=== PATIENT | female | born 1960 | race Caucasian/White ===

== ENCOUNTER 2017-06-08 03:45 | Inpatient (IN) | payer BC ==
[2017-06-08] MEDS ORDERED: ONDANSETRON 4 MG/2 ML VIAL IVP STA (04:10)
[2017-06-08] MEDS ORDERED: HYDROmorphone 1 MG/ML 1 ML SYRINGE IVP STA ×2 (04:10→05:17)
[2017-06-08] MEDS ORDERED: SODIUM CHLORIDE 0.9% 500 ML IV STA (04:11)
--- NOTE | 2017-06-08 04:16 | ED ---
General Adult HPI - General Chief complaint: Chest Pain Stated complaint: CHEST PAIN Time Seen by Provider: 06/08/17 03:50 Source: patient, RN notes reviewed Mode of arrival: wheelchair Limitations: no limitations - History of Present Illness Initial comments: This a 57-year-old female presents emergency Department complaining of waking up in the middle the night about 4 hours ago with chest pain. Patient states it radiated right to her back. And she became nauseated but has yet to vomit. Patient states the chest pain but she points to her epigastric region. Patient states prior to going to bed she had no symptoms. Patient denies any fever chills or cough. Patient denies any vomiting or diarrhea. Patient denies any dysuria hematuria urinary frequency. Patient denies any palpitations or shortness of breath per patient denies headache patient denies numbness weakness. Patient denies lightheadedness dizziness or near syncopal episode. - Related Data Allergies Allergy/AdvReac Type Severity Reaction Status Date / Time amoxicillin [From Trimox] Allergy Swelling Verified 06/08/17 03:53 erythromycin base Allergy Swelling Verified 06/08/17 03:53 morphine Allergy Swelling Verified 06/08/17 03:53 Sulfa (Sulfonamide Allergy Rash/Hives Verified 06/08/17 03:53 Antibiotics) Review of Systems ROS Statement: Those systems with pertinent positive or pertinent negative responses have been documented in the HPI. ROS Other: All systems not noted in ROS Statement are negative. Past Medical History Past Medical History: No Reported History History of Any Multi-Drug Resistant Organisms: None Reported Past Surgical History: Hysterectomy Additional Past Surgical History / Comment(s): bowel obstruction. Past Psychological History: No Psychological Hx Reported Smoking Status: Former smoker Past Alcohol Use History: Occasional Past Drug Use History: None Reported General Exam - General Exam Comments Initial Comments: GENERAL: Patient is well-developed and well-nourished. Patient is nontoxic and well- hydrated and is in mild distress. ENT: Neck is soft and supple. No significant lymphadenopathy is noted. Oropharynx is clear. Moist mucous membranes. Neck has full range of motion without eliciting any pain. EYES: The sclera were anicteric and conjunctiva were pink and moist. Extraocular movements were intact and pupils were equal round and reactive to light. Eyelids were unremarkable. PULMONARY: Unlabored respirations. Good breath sounds bilaterally. No audible rales rhonchi or wheezing was noted. CARDIOVASCULAR: There is a regular rate and rhythm without any murmurs gallops or rubs. ABDOMEN: Patient is a tender epigastric region SKIN: Skin is clear with no lesions or rashes and otherwise unremarkable. NEUROLOGIC: Patient is alert and oriented x3. Cranial nerves II through XII are grossly intact. Motor and sensory are also intact. Normal speech, volume and content. Symmetrical smile. MUSCULOSKELETAL: Normal extremities with adequate strength and full range of motion. No lower extremity swelling or edema. No calf tenderness. LYMPHATICS: No significant lymphadenopathy is noted PSYCHIATRIC: Normal psychiatric evaluation. Normal interpersonal interactions appears functionally intact in deals appropriately with others. No signs of depression. Limitations: no limitations Course Vital Signs 06/08/17 06/08/17 06/08/17 03:49 04:08 04:46 Temperature 98.4 F Pulse Rate 105 H 101 H 80 Respiratory 16 18 18 Rate Blood Pressure 209/107 180/83 166/78 O2 Sat by Pulse 99 99 100 Oximetry 06/08/17 05:45 Temperature 97.6 F Pulse Rate 84 Respiratory 18 Rate Blood Pressure 170/77 O2 Sat by Pulse 98 Oximetry Medical Decision Making - Medical Decision Making EKG shows sinus bradycardia at 107 bpm IA interval is 146 QRS is 72 QT interval 350 QTC is 467. Patient's EKG shows no ST segment elevation or depression or T- wave abnormality she noted. Chest x-ray shows possible infiltrate in the left upper lobe and possible lymphadenopathy in the left hilum. I did a computed tomography scan and computed tomography scan showed a probable pulmonary embolism and 2 spiculated masses. I spoke with Dr. Sanchez's nurse practitioner admitted the patient consult pulmonology. - Lab Data Result diagrams: 06/08/17 03:55 06/08/17 03:55 Lab Results 06/08/17 06/08/17 06/08/17 Range/Units 03:55 03:55 03:55 WBC 8.1 (3.8-10.6) k/uL RBC 5.10 (3.80-5.40) m/uL Hgb 14.7 (11.4-16.0) gm/dL Hct 44.7 (34.0-46.0) % MCV 87.7 (80.0-100.0) fL MCH 28.7 (25.0-35.0) pg MCHC 32.8 (31.0-37.0) g/dL RDW 12.8 (11.5-15.5) % Plt Count 305 (150-450) k/uL Neutrophils % 70 % Lymphocytes % 22 % Monocytes % 5 % Eosinophils % 1 % Basophils % 1 % Neutrophils # 5.6 (1.3-7.7) k/uL Lymphocytes # 1.8 (1.0-4.8) k/uL Monocytes # 0.4 (0-1.0) k/uL Eosinophils # 0.1 (0-0.7) k/uL Basophils # 0.1 (0-0.2) k/uL PT (9.0-12.0) sec INR (<1.2) APTT (22.0-30.0) sec Sodium 141 (137-145) mmol/L Potassium 4.3 (3.5-5.1) mmol/L Chloride 103 (98-107) mmol/L Carbon Dioxide 26 (22-30) mmol/L Anion Gap 12 mmol/L BUN 16 (7-17) mg/dL Creatinine 0.70 (0.52-1.04) mg/dL Est GFR (MDRD) Af Amer >60 (>60 ml/min/1.73 sqM) Est GFR (MDRD) Non-Af >60 (>60 ml/min/1.73 sqM) Glucose 134 H (74-99) mg/dL Calcium 9.5 (8.4-10.2) mg/dL Magnesium 1.8 (1.6-2.3) mg/dL Total Bilirubin 0.3 (0.2-1.3) mg/dL AST 19 (14-36) U/L ALT 37 (9-52) U/L Alkaline Phosphatase 119 (38-126) U/L Total Creatine Kinase 73 (30-135) U/L CK-MB (CK-2) 0.9 (0.0-2.4) ng/mL CK-MB (CK-2) Rel Index 1.2 Troponin I 0.024 (0.000-0.034) ng/mL Total Protein 7.7 (6.3-8.2) g/dL Albumin 4.5 (3.5-5.0) g/dL Amylase 67 (30-110) U/L Lipase 154 (23-300) U/L 11/07/17 Range/Units 03:55 WBC (3.8-10.6) k/uL RBC (3.80-5.40) m/uL Hgb (11.4-16.0) gm/dL Hct (34.0-46.0) % MCV (80.0-100.0) fL MCH (25.0-35.0) pg MCHC (31.0-37.0) g/dL RDW (11.5-15.5) % Plt Count (150-450) k/uL Neutrophils % % Lymphocytes % % Monocytes % % Eosinophils % % Basophils % % Neutrophils # (1.3-7.7) k/uL Lymphocytes # (1.0-4.8) k/uL Monocytes # (0-1.0) k/uL Eosinophils # (0-0.7) k/uL Basophils # (0-0.2) k/uL PT 9.5 (9.0-12.0) sec INR 0.9 (<1.2) APTT 23.8 (22.0-30.0) sec Sodium (137-145) mmol/L Potassium (3.5-5.1) mmol/L Chloride (98-107) mmol/L Carbon Dioxide (22-30) mmol/L Anion Gap mmol/L BUN (7-17) mg/dL Creatinine (0.52-1.04) mg/dL Est GFR (MDRD) Af Amer (>60 ml/min/1.73 sqM) Est GFR (MDRD) Non-Af (>60 ml/min/1.73 sqM) Glucose (74-99) mg/dL Calcium (8.4-10.2) mg/dL Magnesium (1.6-2.3) mg/dL Total Bilirubin (0.2-1.3) mg/dL AST (14-36) U/L ALT (9-52) U/L Alkaline Phosphatase (38-126) U/L Total Creatine Kinase (30-135) U/L CK-MB (CK-2) (0.0-2.4) ng/mL CK-MB (CK-2) Rel Index Troponin I (0.000-0.034) ng/mL Total Protein (6.3-8.2) g/dL Albumin (3.5-5.0) g/dL Amylase (30-110) U/L Lipase (23-300) U/L Disposition Clinical Impression: Pulmonary embolism, Lung mass Disposition: ADMITTED IP TO THIS HOSP Referrals: None,Stated [Primary Care Provider] - 1-2 days Time of Disposition: 06:17
[2017-06-08 04:27] LABS: Basophils # (A) 0.1 k/uL (0-0.2); Basophils % (A) 1 %; CH 28.6; CHCM 32.8; Eosinophils # (A) 0.1 k/uL (0-0.7); Eosinophils % (A) 1 %; HCT 44.7 % (34.0-46.0); HDW 2.31; HGB 14.7 gm/dL (11.4-16.0); Luc # (Auto) 0.13; Luc % (Auto) 2; Lymphocytes # (A) 1.8 k/uL (1.0-4.8); Lymphocytes % (A) 22 %; MCH 28.7 pg (25.0-35.0); MCHC 32.8 g/dL (31.0-37.0); MCV 87.7 fL (80.0-100.0); Monocytes # (A) 0.4 k/uL (0-1.0); Monocytes % (A) 5 %; Neutrophils # (A) 5.6 k/uL (1.3-7.7); Neutrophils % (A) 70 %; RDW 12.8 % (11.5-15.5); WBC 8.1 k/uL (3.8-10.6); WBC (Perox) 7.33
[2017-06-08 04:36] LABS: ALT 37 U/L (9-52); AST 19 U/L (14-36); Alkaline Phosphatase 119 U/L (38-126); Amylase 67 U/L (30-110); Anion Gap 12 mmol/L; Blood Urea Nitrogen 16 mg/dL (7-17); Calcium 9.5 mg/dL (8.4-10.2); Carbon Dioxide 26 mmol/L (22-30); Chloride 103 mmol/L (98-107); Glucose 134 mg/dL (74-99); Magnesium 1.8 mg/dL (1.6-2.3); Non-African American GFR(MDRD) >60 (>60 ml/min/1.73 sqM); Potassium 4.3 mmol/L (3.5-5.1); Sodium 141 mmol/L (137-145); Total Bilirubin 0.3 mg/dL (0.2-1.3); Total Protein 7.7 g/dL (6.3-8.2)
--- NOTE | 2017-06-08 04:56 | XR ---
EXAM: XR Chest, 2 Views CLINICAL HISTORY: Reason: Chest Pain TECHNIQUE: Frontal and lateral views of the chest. COMPARISON: No relevant prior studies available. FINDINGS: Lungs: Focal ovoid opacity in the left upper lung which may reflect developing infiltrate. Follow-up to clearing recommended to exclude underlying lesion. Left hilar fullness which may reflect central infiltrate. Lymphadenopathy can give this appearance. Pleural space: No pleural effusion. Mild biapical pleural thickening. No pneumothorax. Heart: Unremarkable. No cardiomegaly. Mediastinum: Unremarkable. Bones/joints: Unremarkable. Tubes, lines and devices: Overlying tubing and chest leads obscure portion of the chest. IMPRESSION: Focal infiltrate in the left upper lobe. Follow-up to clearing recommended to exclude underlying abnormality Left perihilar infiltrate versus left hilar lymphadenopathy. Consider further evaluation with chest CT for better visualization as indicated. No effusion [employer] 06/08/17 05:08 Verify Receipt Verified receipt with WAI Castro for Dr. Crandall on 06/08 05:06 (-05:00)
[2017-06-08 04:57] LABS: INR 0.9 (<1.2); Partial Thromboplastin Time 23.8 sec (22.0-30.0); Prothrombin Time 9.5 sec (9.0-12.0)
[2017-06-08] MEDS ORDERED: RX INFO: IV CONTRAST WAS GIVEN 1 EACH MISC MISCELLANE PRN ×2 (05:11→11:46)
[2017-06-08 05:18] LABS: Creatine Kinase MB 0.9 ng/mL (0.0-2.4); Troponin I 0.024 ng/mL (0.000-0.034)
--- NOTE | 2017-06-08 06:07 | CT ---
EXAM: CT Angiography Chest With Intravenous Contrast CLINICAL HISTORY: Reason: Pain TECHNIQUE: Axial computed tomographic angiography images of the chest with intravenous contrast using pulmonary embolism protocol. CTDI is 31.8 mGy and DLP is 172.1 mGy-cm. This CT exam was performed using one or more of the following dose reduction techniques: automated exposure control, adjustment of the mA and/or kV according to patient size, and/or use of iterative reconstruction technique. MIP reconstructed images were created and reviewed. COMPARISON: No prior study FINDINGS: Limitations: Suboptimal timing of the contrast bolus somewhat limits evaluation. Pulmonary arteries: Subtle filling defect in the descending segmental branch of the right pulmonary artery (image 80 series 4). Additional possible faint filling defect in the descending segmental branch of the left pulmonary artery. Overall decrease in opacification in the ascending segmental branch of the left pulmonary artery which is concerning for occluding thrombus. Aorta: Calcified atherosclerotic tortuous thoracic aorta. No thoracic aortic aneurysm. Lungs: Tiny nodule in the right upper lobe (image 35). Additional faint nodule in the right upper lobe (image 66). Dependent atelectasis in both lower lobes. Pleural space: No pleural effusion. Mild biapical pleural thickening. Spiculated mass in the left upper lobe measuring 2 cm which extends to the anterior apex and associated with pleural thickening. Additional central left suprahilar masslike finding measuring approximately 1.8 cm. Spiculated lesion in the superior segment of the left lower lobe measuring approximately 2.7 x 2.2 cm. No pneumothorax. Heart: No pericardial effusion. Mediastinum: Small hiatal hernia. Bones/joints: No acute fracture. No dislocation. Soft tissues: Small nodularity in the inner lower left breast, nonspecific. This is seen on image 80 series 4 and image 13 series 10. Recommend correlation with exam and mammogram. Lymph nodes: Small subcentimeter mediastinal lymph nodes, nonspecific. Left hilar lymphadenopathy measuring approximately 2 x 1.3 cm. Gallbladder and bile ducts: Cholelithiasis. Stomach and bowel: Diverticulosis in the visualized large bowel. Other findings: No evidence for dissection. IMPRESSION: 1. Suspicious for pulmonary embolism. Suboptimal timing of the contrast bolus 2. At least 2 spiculated masses in the left upper lobe and left lower lobe concerning for malignancy/metastases. 3. Additional tiny nodules and ill-defined opacities, nonspecific. 4. Left hilar lymphadenopathy. 5. Additional findings as noted above [employer] 06/08/17 06:21 Verify Receipt Verified receipt with ER clerk Castro, given to Dr. Crandall on 06/08 06:20 (-05:00)
[2017-06-08] MEDS ORDERED: HEPARIN SODIUM,PORCINE 10,000 UNIT/ML 1 ML VIAL IV ONE (06:14)
[2017-06-08] MEDS ORDERED: SODIUM CHLORIDE 0.9% 1,000 ML IV ONE (06:17)
[2017-06-08] MEDS: HEPARIN SODIUM,PORCINE/D5W PMX 25,000 UNIT in DEXTROSE/WATER 1 500ML.BAG IV SCH (06:23)
[2017-06-08] MEDS: HYDROmorphone 1 MG/ML 1 ML SYRINGE IVP PRN (10:02)
--- NOTE | 2017-06-08 11:59 | P.CNPUL ---
History of Present Illness Consult date: 06/08/17 Requesting physician: Cordelia Ramos Reason for consult: dyspnea, abnormal CXR/CT Chief complaint: Midsternal to right sided chest discomfort, back pain, shortness of breath History of present illness: This is a very pleasant 57-year-old female patient who follows with no primary care physician. She is on no home medications. She has a previous history of seasonal ALLERGIES and hyperlipidemia. She does have a past surgical history of total abdominal hysterectomy in 1981 for precancerous cervical changes, bowel surgery for bowel obstruction in 1997, colonoscopy in 2013. She is up-to- date on her mammograms. No history of cancer. She does have a remote smoking history for greater than 10 years but quit approximately 12 years ago. She has no history of emphysema, no bronchial asthma. She's not been seen by a multimedia production assistant in the past. She presented here to the emergency room approximately 3:30 this morning after being awoken from a sound sleep with midsternal chest discomfort that was radiating to her back. She got up and moved around without any significant change. She was short of breath with exertion.. She drove herself to the hospital. The patient is quite active and was actually working out and on a treadmill yesterday. She is not sedentary. No recent surgeries. No recent prolonged travel. No history of cancer or blood clots in the past. EKG revealed sinus tachycardia with no ST or T-wave abnormalities. Troponins were negative. Her chest x-ray revealed a focal infiltrate in the left upper lobe as well as left perihilar infiltrate versus lymphadenopathy. She had no fever, chills or night sweats. No cough or congestion. She is maintaining O2 saturations in the 90s on room air. A CT angiogram did reveal suspicion for pulmonary embolism with subtle filling defects in the descending segmental branch of the right pulmonary artery with additional possible faint filling defect in the descending segmental branch of the left pulmonary artery. Also, there is additional findings of 2 spiculated masses in the left upper lobe and left lower lobe concerning for malignancy/ metastasis. There is additional tiny nodules and ill-defined opacities that are nonspecific. There is left hilar lymphadenopathy. The patient is seen today 06/08/2017 in consultation on the selective care unit. She is currently on a heparin drip. She is awake and alert in no acute distress. She denies any worsening shortness of breath, cough or congestion. No hemoptysis. No recent weight loss. She remains afebrile. No leukocytosis. The chest discomfort remains intermittent. Occasionally sharp pain. More so on the right side. Review of Systems 14 point review of system was conducted. All negative other than as mentioned in the HPI. Past Medical History Past Medical History: No Reported History History of Any Multi-Drug Resistant Organisms: None Reported Past Surgical History: Hysterectomy Additional Past Surgical History / Comment(s): bowel obstruction. Past Anesthesia/Blood Transfusion Reactions: No Reported Reaction Past Psychological History: No Psychological Hx Reported Smoking Status: Former smoker Past Alcohol Use History: Occasional Past Drug Use History: None Reported - Past Family History Mother Family Medical History: Cancer, Coronary Artery Disease (CAD), Diabetes Mellitus Father Family Medical History: No Reported History Medications and Allergies Home Medications Medication Instructions Recorded Confirmed Type No Known Home Medications [No 06/08/17 06/08/17 History Known Home Medications] Allergies Allergy/AdvReac Type Severity Reaction Status Date / Time amoxicillin [From Trimox] Allergy Swelling Verified 06/08/17 08:10 erythromycin base Allergy Swelling Verified 06/08/17 08:10 morphine Allergy Swelling Verified 06/08/17 08:10 Sulfa (Sulfonamide Allergy Rash/Hives Verified 06/08/17 08:10 Antibiotics) Physical Exam Vitals: Vital Signs Temp Pulse Pulse Resp BP BP Pulse Ox 06/08/17 08:03 98.1 F 82 16 132/72 99 06/08/17 06:49 97.0 F L 75 18 169/75 100 06/08/17 06:35 97.9 F 88 18 164/75 100 06/08/17 06:29 98.1 F 82 16 131/72 99 06/08/17 05:45 97.6 F 84 18 170/77 98 06/08/17 04:46 80 18 166/78 100 06/08/17 04:08 101 H 18 180/83 99 06/08/17 03:49 98.4 F 105 H 16 209/107 99 Intake and Output 06/07/17 06/08/17 06/08/17 22:59 06:59 14:59 Intake Total 240 Balance 240 Intake: Oral 240 Other: Weight 63.957 kg GENERAL EXAM: Alert, active, comfortable in no apparent distress. HEAD: Normocephalic. EYES: Normal reaction of pupils, equal size. NOSE: Clear with pink turbinates. THROAT: No erythema or exudates. NECK: No masses, no JVD. CHEST: No chest wall deformity. LUNGS: Equal air entry with no crackles, wheeze, rhonchi or dullness. CVS: S1 and S2 normal with no audible murmur, regular rhythm. ABDOMEN: No hepatosplenomegaly, normal bowel sounds, no guarding or rigidity. SPINE: No scoliosis or deformity SKIN: No rashes CENTRAL NERVOUS SYSTEM: No focal deficits, tone is normal in all 4 extremities. EXTREMITIES: There is no peripheral edema. No clubbing, no cyanosis. Peripheral pulses are intact. Results - Laboratory Findings CBC and BMP: 06/08/17 03:55 06/08/17 03:55 PT/INR, D-dimer PT 9.5 sec (9.0-12.0) 06/08/17 03:55 INR 0.9 (<1.2) 06/08/17 03:55 Abnormal lab findings: Abnormal Labs 06/08/17 03:55 Glucose 134 H - Diagnostic Findings Chest x-ray: image reviewed CT scan - chest: image reviewed Assessment and Plan Assessment: Impression: #1 Acute chest pain and shortness of breath secondary to bilateral pulmonary emboli. Currently on a heparin drip. #2 Pulmonary nodules, there are tiny nodules in the right upper lobe, there is a spiculated mass in the left upper lobe measuring 2 cm which extends to the anterior apex and associated pleural thickening. There is an additional central left suprahilar masslike finding measuring approximate 1.8 cm. There is also a spiculated lesion in the superior segment of the left lower lobe measuring approximately 2.7 x 2.2 cm. #3 History of chronic tobacco dependence, quit approximately 12 years ago. #4 Small nodularity in the inner lower left breast, nonspecific. Most recent mammogram on 03/12/2016 revealed no discrete abnormalities. #5 History of precancerous cervical lesions status post hysterectomy in 1981. #6 History of hyperlipidemia. Plan: The patient was seen and evaluated by Dr. Sun. Her chest x-ray and CAT scan was reviewed. He did have a lengthy discussion with the patient in regards to the suspicious lung masses. The plan is to continue treatment for the pulmonary emboli including 3 months of anticoagulation. After that we could safely stop the anticoagulants for a couple of days and perform either a bronchoscopy with biopsy utilizing navigational bronchoscopy versus percutaneous biopsy by interventional radiology of the peripheral lower lobe nodule. Prior to that she would have an outpatient PET scan to determine which area may provide better yield and diagnosis. In the interim, we will obtain a computed tomography scan of the abdomen and Dopplers of the lower extremities. The patient verbalizes understanding and is agreeable to the plan. We will continue to follow and make further recommendations based on her clinical status and the test results. I, the cosigning physician, have performed a history and physical examination on the patient. Chest x-ray and CAT scan of the chest were reviewed with the patient. Lung sounds are clear. Maintaining good O2 saturations in the 90s on room air. I have discussed the assessment and plan of care with my nurse practitioner, Ericka Fuller. I attest the above documented note as dictated by her. Time with Patient: Greater than 30
--- NOTE | 2017-06-08 13:18 | US ---
EXAMINATION TYPE: US venous doppler duplex LE BI DATE OF EXAM: 06/08/2017 12:57 PM COMPARISON: NONE CLINICAL HISTORY: PE. SIDE PERFORMED: Bilateral TECHNIQUE: The lower extremity deep venous system is examined utilizing real time linear array sonog jeff with graded compression, doppler sonography and color-flow sonography. VESSELS IMAGED: External Iliac Vein (EIV) Common Femoral Vein Deep Femoral Vein Greater Saphenous Vein * Femoral Vein Popliteal Vein Small Saphenous Vein * Proximal Calf Veins (* superficial vessels) Right Leg: Negative for DVT Left Leg: Negative for DVT IMPRESSION: 1. Study is negative for deep venous thrombosis by ultrasound criteria.
[2017-06-08] MEDS: ALPRAZolam 0.25 MG TAB PO PRN (21:31)
[2017-06-08] MEDS: TEMAZEPAM 15 MG CAP PO PRN (21:31)
--- NOTE | 2017-06-08 22:54 | P.HPIM ---
History of Present Illness H&P Date: 06/08/17 Chief Complaint: Chest pain Patient is a 57-year-old female without significant respiratory history except remote smoking history quit several years ago came to ER with complaints of chest pain. Patient suddenly felt chest pain at about 4:30 AM which woke her from sleep. Chest was radiating to back and to the epigastric region. Sharp pain associated with short of breath. No aggravating or relieving factors. Otherwise patient is very active with daily exercise routine. Patient otherwise denied any recent surgeries or trauma. No history of blood clots previously. Patient is up-to-date with her colonoscopy last in 2013 and also mammograms. Patient does have history of total abdominal hysterectomy in 1981 for precancerous cervical changes. Chest x-ray showed no infiltrate. Showed left perihilar infiltrate versus libido but he Troponin negative EKG showed sinus tachycardia. CT angiogram of the chest showed suspicious for pulmonary embolism descending segmental branch of right pulmonary artery. It was also found to have 2 spiculated masses in the left upper lobe and lower lobe concerning for malignancy. Review of Systems Constitutional: Patient denies any fever or chills . No generalized weakness or weight loss. Abdomen: Patient denied nausea vomiting and diarrhea and abdominal pain. Cardiovascular: Patient denies any chest pain or short of breath no palpitations. Respiratory: No cough or sputum production. Patient does have chest pain.. No shortness of breath Neurologic: Patient denied any numbness or tingling headache. Musculoskeletal: Patient denies any complaints of joint swelling or deformity. Skin: Negative Psychiatric: Negative Endocrine: No heat or cold intolerance. No recent weight gain. Genitourinary: No dysuria or hematuria. All other 14 point ROS negative except the above Past Medical History Past Medical History: No Reported History History of Any Multi-Drug Resistant Organisms: None Reported Past Surgical History: Hysterectomy Additional Past Surgical History / Comment(s): bowel obstruction. Past Psychological History: No Psychological Hx Reported Smoking Status: Former smoker Past Alcohol Use History: Occasional Past Drug Use History: None Reported - Past Family History Mother Family Medical History: Cancer, Coronary Artery Disease (CAD), Diabetes Mellitus Father Family Medical History: No Reported History Medications and Allergies Home Medications Medication Instructions Recorded Confirmed Type No Known Home Medications [No 06/08/17 06/08/17 History Known Home Medications] Allergies Allergy/AdvReac Type Severity Reaction Status Date / Time amoxicillin [From Trimox] Allergy Swelling Verified 06/08/17 08:10 erythromycin base Allergy Swelling Verified 06/08/17 08:10 morphine Allergy Swelling Verified 06/08/17 08:10 Sulfa (Sulfonamide Allergy Rash/Hives Verified 06/08/17 08:10 Antibiotics) Physical Exam Vitals: Vital Signs Temp Pulse Pulse Resp BP BP Pulse Ox 06/08/17 08:03 98.1 F 82 16 132/72 99 06/08/17 06:49 97.0 F L 75 18 169/75 100 06/08/17 06:35 97.9 F 88 18 164/75 100 06/08/17 05:45 97.6 F 84 18 170/77 98 06/08/17 04:46 80 18 166/78 100 06/08/17 04:08 101 H 18 180/83 99 06/08/17 03:49 98.4 F 105 H 16 209/107 99 Intake and Output 06/07/17 06/08/17 06/08/17 22:59 06:59 14:59 Intake Total 240 Balance 240 Intake: Oral 240 Other: Weight 63.957 kg PHYSICAL EXAMINATION: Patient is lying in the bed comfortably, no acute distress, awake alert and oriented.. HEENT: Normocephalic. Neck is supple. Pupils reactive. Nostrils clear. Oral cavity is moist. Ears reveal no drainage. Neck reveals no JVD, carotid bruits, or thyromegaly. CHEST EXAMINATION: Trachea is central. Symmetrical expansion. Lung salmon clear to auscultation and percussion. CARDIAC: Normal S1, S2 with no gallops. No murmurs ABDOMEN: Soft. Bowel sounds normal. No organomegaly. No abdominal bruits. Extremities: reveal no edema. No clubbing or cyanosis Neurologically awake, alert, oriented x3 with well-coordinated movements. No focal deficits noted Skin: No rash or skin lesions. Psychiatric: Operative. Nonsuicidal Musculoskeletal: No joint swelling or deformity. Normal range of motion. Results CBC & Chem 7: 06/08/17 03:55 06/08/17 03:55 Labs: Abnormal Lab Results - Last 24 Hours (Table) 06/08/17 Range/Units 03:55 Glucose 134 H (74-99) mg/dL Assessment and Plan Assessment: #1 chest pain due to acute bilateral pulmonary emboli #2 spiculated mass in the left upper lobe and lower lobe concerning for malignancy #3 hyperlipidemia next #4 history of abdominal hysterectomy due to precancerous cervical lesions Plan: Patient will be continued on heparin drip at this time. Patient's chest pain is improving now. Patient will be getting CT of abdominal pelvis. Pulmonary is recommending bronchoscopy or percutaneous IR guided biopsy after 3 months of anticoagulation. Patient may need PET scan as outpatient. Will consult oncology as well. Prognosis is guarded. Further recommendations based on the clinical course. I did discuss with the patient in detail and answered all questions. Time with Patient: Greater than 30
[2017-06-09] MEDS: HEPARIN SODIUM,PORCINE/D5W PMX 25,000 UNIT in DEXTROSE/WATER 1 500ML.BAG IV SCH (06:52)
[2017-06-09 09:12] LABS: Anion Gap 6 mmol/L; Blood Urea Nitrogen 8 mg/dL (7-17); Calcium 8.8 mg/dL (8.4-10.2); Carbon Dioxide 27 mmol/L (22-30); Chloride 109 mmol/L (98-107); Glucose 110 mg/dL (74-99); Non-African American GFR(MDRD) >60 (>60 ml/min/1.73 sqM); Potassium 4.1 mmol/L (3.5-5.1); Sodium 142 mmol/L (137-145)
[2017-06-09] MEDS ORDERED: RX INFO: IV CONTRAST WAS GIVEN 1 EACH MISC MISCELLANE PRN (09:17)
[2017-06-09] MEDS: IOHEXOL 350 MG/ML 25 ML BOTTLE (ORAL USE) PO PRN ×2 (09:27→10:38)
--- NOTE | 2017-06-09 11:47 | P.PN ---
Subjective Progress Note Date: 06/09/17 Principal diagnosis: Pulmonary embolism, lung mass This is a very pleasant 57-year-old female patient who follows with no primary care physician. She is on no home medications. She has a previous history of seasonal ALLERGIES and hyperlipidemia. She does have a past surgical history of total abdominal hysterectomy in 1981 for precancerous cervical changes, bowel surgery for bowel obstruction in 1997, colonoscopy in 2013. She is up-to- date on her mammograms. No history of cancer. She does have a remote smoking history for greater than 10 years but quit approximately 12 years ago. She has no history of emphysema, no bronchial asthma. She's not been seen by a pole shaver in the past. She presented here to the emergency room approximately 3:30 this morning after being awoken from a sound sleep with midsternal chest discomfort that was radiating to her back. She got up and moved around without any significant change. She was short of breath with exertion.. She drove herself to the hospital. The patient is quite active and was actually working out and on a treadmill yesterday. She is not sedentary. No recent surgeries. No recent prolonged travel. No history of cancer or blood clots in the past. EKG revealed sinus tachycardia with no ST or T-wave abnormalities. Troponins were negative. Her chest x-ray revealed a focal infiltrate in the left upper lobe as well as left perihilar infiltrate versus lymphadenopathy. She had no fever, chills or night sweats. No cough or congestion. She is maintaining O2 saturations in the 90s on room air. A CT angiogram did reveal suspicion for pulmonary embolism with subtle filling defects in the descending segmental branch of the right pulmonary artery with additional possible faint filling defect in the descending segmental branch of the left pulmonary artery. Also, there is additional findings of 2 spiculated masses in the left upper lobe and left lower lobe concerning for malignancy/ metastasis. There is additional tiny nodules and ill-defined opacities that are nonspecific. There is left hilar lymphadenopathy. The patient is seen today 06/08/2017 in consultation on the selective care unit. She is currently on a heparin drip. She is awake and alert in no acute distress. She denies any worsening shortness of breath, cough or congestion. No hemoptysis. No recent weight loss. She remains afebrile. No leukocytosis. The chest discomfort remains intermittent. Occasionally sharp pain. More so on the right side. The patient is seen again today 06/09/2017 in follow-up on the selective care unit. She is awake and alert in no acute distress. She feels nearly back to her baseline. She denies any shortness of breath, cough or congestion. No hemoptysis. No pleuritic type chest pain. She is maintaining good O2 saturations in the 90s on room air. She is quite anxious regarding the potential cancer diagnosis. She is to undergo a computed tomography scan of the abdomen and pelvis. Oncology saw the patient today as well. They would prefer a biopsy prior to the patient's discharge. Interventional radiology is been consulted for computed tomography scan guided FNA of the left lower lobe peripheral lung mass. She remains on heparin drip for now. Objective - Vital Signs Vital signs: Vital Signs Temp 98.1 F 06/09/17 08:00 Pulse 85 06/09/17 08:00 Resp 18 06/09/17 08:00 BP 132/74 06/09/17 08:00 Pulse Ox 97 06/09/17 08:00 Intake & Output 06/08/17 06/09/17 06/09/17 18:59 06:59 18:59 Intake Total 720 1284 240 Output Total 800 500 Balance -80 784 240 Weight 64.8 kg Intake: IV 784 Heparin Sodium,Porcine/ 184 D5w Pmx 25,000 unit In Dextrose/Water 1 500ml. bag @ 18 UNITS/KG/HR 23. 02 mls/hr IV .[id number] [facility] Rx#:[id number] Sodium Chloride 0.9% 1, 600 000 ml @ 75 mls/hr IV . [id number] Rx#:[id number] Intake, IV Titration 500 Amount Heparin Sodium,Porcine/ 500 D5w Pmx 25,000 unit In Dextrose/Water 1 500ml. bag @ 18 UNITS/KG/HR 23. 02 mls/hr IV .[id number] [facility] Rx#:[id number] Oral 720 240 Output: Urine 800 500 Other: Voiding Method Toilet Toilet # Voids 2 0 - Exam GENERAL EXAM: Alert, active, comfortable in no apparent distress. HEAD: Normocephalic. EYES: Normal reaction of pupils, equal size. NOSE: Clear with pink turbinates. THROAT: No erythema or exudates. NECK: No masses, no JVD. CHEST: No chest wall deformity. LUNGS: Equal air entry with no crackles, wheeze, rhonchi or dullness. CVS: S1 and S2 normal with no audible murmur, regular rhythm. ABDOMEN: No hepatosplenomegaly, normal bowel sounds, no guarding or rigidity. SPINE: No scoliosis or deformity SKIN: No rashes CENTRAL NERVOUS SYSTEM: No focal deficits, tone is normal in all 4 extremities. EXTREMITIES: There is no peripheral edema. No clubbing, no cyanosis. Peripheral pulses are intact. - Labs CBC & Chem 7: 06/08/17 03:55 06/09/17 08:17 Labs: Abnormal Lab Results - Last 24 Hours (Table) 06/08/17 06/09/17 06/09/17 Range/Units 13:12 08: 08:17 APTT 62.1 H 49.6 H (22.0-30.0) sec Chloride 109 H (98-107) mmol/L Glucose 110 H (74-99) mg/dL Assessment and Plan Assessment: Impression: #1 Acute chest pain and shortness of breath secondary to bilateral pulmonary emboli. Currently on a heparin drip. #2 Pulmonary nodules, there are tiny nodules in the right upper lobe, there is a spiculated mass in the left upper lobe measuring 2 cm which extends to the anterior apex and associated pleural thickening. There is an additional central left suprahilar masslike finding measuring approximate 1.8 cm. There is also a spiculated lesion in the superior segment of the left lower lobe measuring approximately 2.7 x 2.2 cm. #3 History of chronic tobacco dependence, quit approximately 12 years ago. #4 Small nodularity in the inner lower left breast, nonspecific. Most recent mammogram on 03/12/2016 revealed no discrete abnormalities. #5 History of precancerous cervical lesions status post hysterectomy in 1981. #6 History of hyperlipidemia. Plan: The patient was seen and evaluated by Dr. Sun. We will await results of the abdominal/pelvis computed tomography scan today. The plan is for the patient to undergo a computed tomography scan guided FNA of the left lower lobe lung mass. The plan is for the procedure to be performed in the a.m. We will discontinue the heparin 4 hours prior to the procedure. We will continue to follow and make further recommendations based on her clinical status and the test results. I, the cosigning physician, have performed a history and physical examination on the patient. Lung sounds are clear. Maintaining good O2 saturations in the 90s on room air. I have discussed the assessment and plan of care with my nurse practitioner, Ericka Fuller. I attest the above documented note as dictated by her.
--- NOTE | 2017-06-09 12:06 | CT ---
EXAMINATION TYPE: CT brain w con DATE OF EXAM: 06/09/2017 COMPARISON: NONE HISTORY: Pulmonary embolism and Lung masses CT DLP: 1047.10 mGycm Automated exposure control for dose reduction was used. CONTRAST: CT scan of the head is performed with IV Contrast, patient injected with 100 ml mL of Omnipaque 300. FINDINGS: There is a lobulated appearance noted to involve the tere on the left without distinct enhancement. U nderlying mass is difficult to exclude. MRI is recommended for further evaluation. The ventricles and sulci are within normal limits in size. The globes are intact and the visualized sinuses are clear. IMPRESSION: Recommend MRI to exclude lesion adjacent to the tere as noted above.
--- NOTE | 2017-06-09 12:12 | CT ---
EXAMINATION TYPE: CT abdomen pelvis w con DATE OF EXAM: 06/09/2017 COMPARISON: NONE HISTORY: Lung masses CT DLP: 609.20 mGycm CONTRAST: CT scan of the abdomen and pelvis is performed with Oral Contrast and with IV Contrast, patient injec valentín with 100 ml mL of Omnipaque 300. FINDINGS: LUNG BASES-: No visible nodule. No infiltrate. LIVER/GB: Multiple gallstones are seen within the gallbladder lumen with wall thickening and enhanc ement. Pericholecystic fluid is identified. I cannot exclude acute cholecystitis. Fatty hepatic infil tration noted. No space occupying hepatic lesion. Biliary tree is of normal caliber. PANCREAS: No inflammation. No distinct mass. SPLEEN: No splenic enlargement. No lesion seen. ADRENALS: No nodule. No thickening. KIDNEYS/BLADDER: No hydronephrosis. No nephrolithiasis. No disctinct renal mass. Urinary bladder g rossly unremarkable. BOWEL: Normal appendix. Normal bowel caliber. No inflammation. Small sliding-type hiatal hernia. GENITAL ORGANS: Hysterectomy changes identified. LYMPH NODES: No greater than 1cm abdominal or pelvic lymph nodes are appreciated. AORTA: No significant abnormality. OSSEOUS STRUCTURES: Degenerative change and grade 1 anterolisthesis L5 on S1. OTHER: No significant additional abnormality is seen. IMPRESSION: 1. Correlate for acute cholecystitis. 2. Hepatic steatosis. 3. Small sliding-type hiatal hernia. A Red message has been communicated to Cordelia Ramos MD via the [employer] system on 06/09/2017 12:10 PM, Message ID [id number].
--- NOTE | 2017-06-09 17:46 | P.CONS ---
History of Present Illness - Reason for Consult Consult date: 06/09/17 spiculated lung masses, lymphadenopathy Requesting physician: Angie Alvarez - Chief Complaint sudden onset chest pain - History of Present Illness Mrs. Tabor is a very pleasant 57-year-old female who experienced chest pain, sudden, woke her up, this was associated with nausea, no vomiting, patient thought she was having a heart attack so she came to the emergency department. Patient had CTA of the chest revealing pulmonary embolism as well as spiculated masses- 1.8 cm mass in RAUL, 2.7 x 2.2 cm mass LLL, 2 x 1.3 cm left hilar lymphadenopathy, bilateral lower extremity Doppler negative for DVT. Patient was started on heparin drip with improvement in presenting c/o, no chest pain, no longer nauseated, she denies difficulty in breathing. Patient states that about 2 months ago she first noted a change in her health, she stated experiencing dysphagia, occasional, denied nausea or vomiting, weight loss, actually appetite was increased, she started experiencing night sweats about one month ago, not every night, but she noted they were different from her sweats that she gets from "hot flashes". Patient denied recent illnesses, voice changes, new or changed cough, abdominal pain, bloating, changes in bowel or bladder habits. She has a remote history of smoking, positive for work exposure to black mold, her maternal grandmother had lung cancer. Patient performance status 0, no comorbid conditions, she is in good health. Review of Systems 14 point ROS as stated in HPI Past Medical History Past Medical History: No Reported History History of Any Multi-Drug Resistant Organisms: None Reported Past Surgical History: Hysterectomy Additional Past Surgical History / Comment(s): bowel obstruction. Past Anesthesia/Blood Transfusion Reactions: No Reported Reaction Past Psychological History: No Psychological Hx Reported Smoking Status: Former smoker Past Alcohol Use History: Occasional Past Drug Use History: None Reported - Past Family History Mother Family Medical History: Cancer, Coronary Artery Disease (CAD), Diabetes Mellitus Father Family Medical History: No Reported History Medications and Allergies Home Medications Medication Instructions Recorded Confirmed Type No Known Home Medications [No 06/08/17 06/08/17 History Known Home Medications] Allergies Allergy/AdvReac Type Severity Reaction Status Date / Time amoxicillin [From Trimox] Allergy Swelling Verified 06/08/17 08:10 erythromycin base Allergy Swelling Verified 06/08/17 08:10 morphine Allergy Swelling Verified 06/08/17 08:10 Sulfa (Sulfonamide Allergy Rash/Hives Verified 06/08/17 08:10 Antibiotics) Physical Exam Vitals: Vital Signs Temp Pulse Resp BP Pulse Ox 06/09/17 04:00 97.1 F L 81 18 137/83 95 06/09/17 00:00 97.0 F L 81 18 126/70 94 L 06/08/17 20:00 97.2 F L 85 18 127/73 91 L 06/08/17 16:29 97.7 F 72 16 143/85 97 06/08/17 12:18 97.7 F 89 16 183/82 99 06/08/17 12:15 82 18 Intake and Output 06/08/17 06/09/17 06/09/17 22:59 06:59 14:59 Intake Total 240 1284 240 Output Total 500 Balance -260 1284 240 Intake: IV 784 Heparin Sodium,Porcine/ 184 D5w Pmx 25,000 unit In Dextrose/Water 1 500ml. bag @ 18 UNITS/KG/HR 23. 02 mls/hr IV .[id number] [facility] Rx#:[id number] Sodium Chloride 0.9% 1, 600 000 ml @ 75 mls/hr IV . [id number] [facility] Rx#:[id number] Intake, IV Titration 500 Amount Heparin Sodium,Porcine/ 500 D5w Pmx 25,000 unit In Dextrose/Water 1 500ml. bag @ 18 UNITS/KG/HR 23. 02 mls/hr IV .[id number] [facility] Rx#:[id number] Oral 240 240 Output: Urine 500 Other: Voiding Method Toilet Toilet # Voids 2 0 Weight 64.8 kg - Constitutional General appearance: average body habitus, cooperative, no acute distress - EENT Eyes: anicteric sclerae, EOMI, normal appearance ENT: normal oropharynx - Neck left supraclavicular fullness, no palpable masses or lymphadenopathy palpated - Respiratory Respiratory: bilateral: CTA - Cardiovascular Rhythm: regular Heart sounds: normal: S1, S2 Abnormal Heart Sounds: no systolic murmur, no diastolic murmur, no rub, no S3 Gallop, no S4 Gallop, no click, no other leg Peripheral Edema: bilateral: None - Gastrointestinal General gastrointestinal: no absent bowel sounds, no decreased bowel sounds, no distended, no hepatomegaly, no hyperactive bowel sounds, normal bowel sounds, no organomegaly, no rigid, no scaphoid, soft, no splenomegaly, no tenderness, no umbilical hernia, no ventral hernia - Integumentary Integumentary: normal - Neurologic Neurologic: CNII-XII intact - Musculoskeletal Musculoskeletal: strength equal bilaterally - Psychiatric Psychiatric: A&O x's 3, appropriate affect, intact judgment & insight Results CBC & Chem 7: 06/08/17 03:55 06/09/17 08:17 Labs: Abnormal Lab Results - Last 24 Hours (Table) 06/08/17 06/09/17 Range/Units 13:12 08:17 APTT 62.1 H (22.0-30.0) sec Chloride 109 H (98-107) mmol/L Glucose 110 H (74-99) mg/dL Comments: EKG reviewed Chest x-ray: report reviewed CT scan - chest: report reviewed Venous US: report reviewed Assessment and Plan (1) Lung mass Narrative/Plan: Pulmonary notes reviewed, brief discussion with DNP. Plan is for CT-guided FNA biopsy unless staging CT of abdomen and pelvis finds a better target for biopsy. Agree with biopsy sooner than later as patient is on a heparin drip, which is slightly easier to manage with biopsies, it does shorten the duration of time which the patient would be unprotected for her PE. Dr. Jackson did discuss with the patient the suspicion for malignancy based on imaging as well as presentation of unprovoked PE. Agree with workup sooner than later, CT of the abdomen and pelvis has been ordered, CT of the brain will be ordered to complete staging. We will continue to follow patient with you. Current Visit: Yes Status: Acute Priority: High Code(s): R91.8 - OTHER NONSPECIFIC ABNORMAL FINDING OF LUNG FIELD SNOMED Code(s): 727005978 (2) Pulmonary embolism Narrative/Plan: Continue heparin drip for now,further anticoagulation decisions will be made after biopsy Current Visit: Yes Status: Acute Priority: High Code(s): I26.99 - OTHER PULMONARY EMBOLISM WITHOUT ACUTE COR PULMONALE SNOMED Code(s): 63235506
--- NOTE | 2017-06-10 00:23 | P.PN ---
Subjective Progress Note Date: 06/09/17 Principal diagnosis: Lung mass and pulmonary embolism Patient is a 57-year-old female without significant respiratory history except remote smoking history quit several years ago came to ER with complaints of chest pain. Patient suddenly felt chest pain at about 4:30 AM which woke her from sleep. Chest was radiating to back and to the epigastric region. Sharp pain associated with short of breath. No aggravating or relieving factors. Otherwise patient is very active with daily exercise routine. Patient otherwise denied any recent surgeries or trauma. No history of blood clots previously. Patient is up-to-date with her colonoscopy last in 2013 and also mammograms. Patient does have history of total abdominal hysterectomy in 1981 for precancerous cervical changes. Chest x-ray showed no infiltrate. Showed left perihilar infiltrate versus libido but he Troponin negative EKG showed sinus tachycardia. CT angiogram of the chest showed suspicious for pulmonary embolism descending segmental branch of right pulmonary artery. It was also found to have 2 spiculated masses in the left upper lobe and lower lobe concerning for malignancy. 06/09/2017 Patient says that she feels better today. No complaints of chest pain or short of breath. No complaints of abdominal pain also no nausea vomiting. Patient had CT abdomen and pelvis showed acute cholecystitis-like picture and hepatic steatosis. Currently patient denied any pain. CT brain showed suspicious for pontine lesion. Patient is being scheduled for lung biopsy tomorrow. Continued on IV heparin. And will hold prior to procedure. All other review of systems negative except the above Current medications reviewed Objective - Vital Signs Vital signs: Vital Signs Temp 97.1 F L 06/09/17 19:25 Pulse 87 06/09/17 19:25 Resp 16 06/09/17 19:25 BP 130/73 06/09/17 19:25 Pulse Ox 96 06/09/17 19:25 Intake & Output 06/09/17 06/09/17 06/10/17 06:59 18:59 06:59 Intake Total 1284 720 Output Total 500 400 Balance 784 320 Weight 64.8 kg Intake: IV 784 Heparin Sodium,Porcine/ 184 D5w Pmx 25,000 unit In Dextrose/Water 1 500ml. bag @ 18 UNITS/KG/HR 23. 02 mls/hr IV .[id number] [facility] Rx#:[id number] Sodium Chloride 0.9% 1, 600 000 ml @ 75 mls/hr IV . [id number] Rx#:[id number] Intake, IV Titration 500 Amount Heparin Sodium,Porcine/ 500 D5w Pmx 25,000 unit In Dextrose/Water 1 500ml. bag @ 18 UNITS/KG/HR 23. 02 mls/hr IV .[id number] [facility] Rx#:[id number] Oral 720 Output: Urine 500 400 Other: Voiding Method Toilet Toilet # Voids 2 2 # Bowel Movements 0 - Exam PHYSICAL EXAMINATION: Patient is lying in the bed comfortably, no acute distress, awake alert and oriented.. HEENT: Normocephalic. Neck is supple. Pupils reactive. Nostrils clear. Oral cavity is moist. Ears reveal no drainage. Neck reveals no JVD, carotid bruits, or thyromegaly. CHEST EXAMINATION: Trachea is central. Symmetrical expansion. Lung salmon clear to auscultation and percussion. CARDIAC: Normal S1, S2 with no gallops. No murmurs ABDOMEN: Soft. Bowel sounds normal. No organomegaly. No abdominal bruits. Extremities: reveal no edema. No clubbing or cyanosis Neurologically awake, alert, oriented x3 with well-coordinated movements. No focal deficits noted Skin: No rash or skin lesions. Psychiatric: Cooperative. Nonsuicidal Musculoskeletal: No joint swelling or deformity. Normal range of motion. - Labs CBC & Chem 7: 06/08/17 03:55 06/09/17 08:17 Labs: Abnormal Lab Results - Last 24 Hours (Table) 06/09/17 06/09/17 Range/Units : 08:17 APTT 49.6 H (22.0-30.0) sec Chloride 109 H (98-107) mmol/L Glucose 110 H (74-99) mg/dL Assessment and Plan Assessment: #1 chest pain due to acute bilateral pulmonary emboli #2 spiculated mass in the left upper lobe and lower lobe concerning for malignancy #3 hyperlipidemia next #4 history of abdominal hysterectomy due to precancerous cervical lesions Plan: Patient will be continued on heparin drip at this time. Chest pain resolved. Patient had CT abdomen and pelvis and CT head was done. Planning for IR guided lung biopsy tomorrow. Oncology and pulmonary is following. Prognosis is guarded. Further recommendations based on the clinical course. I did discuss with the patient in detail and answered all questions.
[2017-06-10] MEDS: HEPARIN SODIUM,PORCINE/D5W PMX 25,000 UNIT in DEXTROSE/WATER 1 500ML.BAG IV SCH (00:37)
[2017-06-10 07:44] LABS: Mean Platelet Volume 7.2
[2017-06-10 07:48] LABS: INR 0.9 (<1.2); Partial Thromboplastin Time 27.8 sec (22.0-30.0); Prothrombin Time 9.5 sec (9.0-12.0)
[2017-06-10] MEDS: HYDROmorphone 1 MG/ML 1 ML SYRINGE IVP PRN (10:45)
--- NOTE | 2017-06-10 11:39 | XR ---
EXAMINATION TYPE: XR chest 1V portable DATE OF EXAM: 06/10/2017 COMPARISON: Prior chest x-ray 06/08/2017 HISTORY: Status post lung biopsy TECHNIQUE: Single frontal view of the chest is obtained. FINDINGS: Minimal left apical pneumothorax is noted. No other significant interval change. IMPRESSION: Minimal apical pneumothorax. Follow-up recommended.
[2017-06-10] MEDS ORDERED: ONDANSETRON 4 MG/2 ML VIAL IVP PRN (11:49)
--- NOTE | 2017-06-10 13:33 | P.PN ---
Subjective Progress Note Date: 06/10/17 Principal diagnosis: pulmonary embolism, lung mass This is a very pleasant 57-year-old female patient who follows with no primary care physician. She is on no home medications. She has a previous history of seasonal ALLERGIES and hyperlipidemia. She does have a past surgical history of total abdominal hysterectomy in 1981 for precancerous cervical changes, bowel surgery for bowel obstruction in 1997, colonoscopy in 2013. She is up-to- date on her mammograms. No history of cancer. She does have a remote smoking history for greater than 10 years but quit approximately 12 years ago. She has no history of emphysema, no bronchial asthma. 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 She presented here to the emergency room approximately 3:30 this morning after being awoken from a sound sleep with midsternal chest discomfort that was radiating to her back. She got up and moved around without any significant change. She was short of breath with exertion.. She drove herself to the hospital. The patient is quite active and was actually working out and on a treadmill yesterday. She is not sedentary. No recent surgeries. No recent prolonged travel. No history of cancer or blood clots in the past. EKG revealed sinus tachycardia with no ST or T-wave abnormalities. Troponins were negative. Her chest x-ray revealed a focal infiltrate in the left upper lobe as well as left perihilar infiltrate versus lymphadenopathy. She had no fever, chills or night sweats. No cough or congestion. She is maintaining O2 saturations in the 90s on room air. A CT angiogram did reveal suspicion for pulmonary embolism with subtle filling defects in the descending segmental branch of the right pulmonary artery with additional possible faint filling defect in the descending segmental branch of the left pulmonary artery. Also, there is additional findings of 2 spiculated masses in the left upper lobe and left lower lobe concerning for malignancy/ metastasis. There is additional tiny nodules and ill-defined opacities that are nonspecific. There is left hilar lymphadenopathy. The patient is seen today 06/08/2017 in consultation on the selective care unit. She is currently on a heparin drip. She is awake and alert in no acute distress. She denies any worsening shortness of breath, cough or congestion. No hemoptysis. No recent weight loss. She remains afebrile. No leukocytosis. The chest discomfort remains intermittent. Occasionally sharp pain. More so on the right side. The patient is seen again today 06/09/2017 in follow-up on the selective care unit. She is awake and alert in no acute distress. She feels nearly back to her baseline. She denies any shortness of breath, cough or congestion. No hemoptysis. No pleuritic type chest pain. She is maintaining good O2 saturations in the 90s on room air. She is quite anxious regarding the potential cancer diagnosis. She is to undergo a computed tomography scan of the abdomen and pelvis. Oncology saw the patient today as well. They would prefer a biopsy prior to the patient's discharge. Interventional radiology is been consulted for computed tomography scan guided FNA of the left lower lobe peripheral lung mass. She remains on heparin drip for now. On 06/10/2017 patient seen in medical surgical floor, status post left upper lung mass fine-needle aspiration biopsy performed by Dr. Davidson. she is sitting up in bed, in no acute distress, she is on room air with O2 sat 95%. She has been afebrile. chest x-ray from 06/10/2017 after the biopsy shows minimal apical pneumothorax, follow-up chest x-ray will be done at 1400. Lung sounds are clear, no rhonchi, no wheezes, no rales. patient denies any significant discomfort at this time. Objective - Vital Signs Vital signs: Vital Signs Temp 97.6 F 06/10/17 11:48 Pulse 82 06/10/17 12:20 Resp 16 06/10/17 11:48 BP 175/68 06/10/17 12:20 Pulse Ox 93 L 06/10/17 12:20 Intake & Output 06/09/17 06/10/17 06/10/17 18:59 06:59 18:59 Intake Total 720 532.529 Output Total 400 Balance 320 532.529 Weight 68.5 kg Intake: Intake, IV Titration 532.529 Amount Heparin Sodium,Porcine/ 532.529 D5w Pmx 25,000 unit In Dextrose/Water 1 500ml. bag @ 18 UNITS/KG/HR 23. 02 mls/hr IV .[id number] [facility] Rx#:[id number] Oral 720 Output: Urine 400 Other: Voiding Method Toilet Toilet # Voids 2 2 # Bowel Movements 0 0 - Exam GENERAL EXAM: Alert, active, comfortable in no apparent distress. HEAD: Normocephalic. EYES: Normal reaction of pupils, equal size. NOSE: Clear with pink turbinates. THROAT: No erythema or exudates. NECK: No masses, no JVD. CHEST: No chest wall deformity. LUNGS: Equal air entry with no crackles, wheeze, rhonchi or dullness. CVS: S1 and S2 normal with no audible murmur, regular rhythm. ABDOMEN: No hepatosplenomegaly, normal bowel sounds, no guarding or rigidity. SPINE: No scoliosis or deformity SKIN: No rashes CENTRAL NERVOUS SYSTEM: No focal deficits, tone is normal in all 4 extremities. EXTREMITIES: There is no peripheral edema. No clubbing, no cyanosis. Peripheral pulses are intact. - Labs CBC & Chem 7: 06/10/17 07:11 06/09/17 08:17 Assessment and Plan Plan: Impression: #1 Acute chest pain and shortness of breath secondary to bilateral pulmonary emboli. Currently on a heparin drip. #2 Pulmonary nodules, there are tiny nodules in the right upper lobe, there is a spiculated mass in the left upper lobe measuring 2 cm which extends to the anterior apex and associated pleural thickening. There is an additional central left suprahilar masslike finding measuring approximate 1.8 cm. There is also a spiculated lesion in the superior segment of the left lower lobe measuring approximately 2.7 x 2.2 cm, status post left upper lobe fine-needle aspiration biopsy. Small left apical pneumothorax noted on the chest x-ray was taken after the procedure. #3 History of chronic tobacco dependence, quit approximately 12 years ago. #4 Small nodularity in the inner lower left breast, nonspecific. Most recent mammogram on 03/12/2016 revealed no discrete abnormalities. #5 History of precancerous cervical lesions status post hysterectomy in 1981. #6 History of hyperlipidemia. Plan: patient is doing well the left upper lung biopsy, no oxygenation issues, no major respiratory difficulties. Follow-up chest x-ray for small left apical pneumothorax will be done at 1400. T abdomen and pelvis from 06/09/2017 shows possibility of acute cholecystitis, hepatic steatosis and a small sliding type hiatal hernia. she will be resumed on heparin drip once cleared by interventional radiology for her bilateral pulmonary emboli. Further recommendations will follow I performed a history & physical examination of the patient and discussed their management with my nurse practitioner, Elke Clark. patient is status post left lung fine-needle aspiration biopsy, post-procedure chest x-ray positive for small apical pneumothorax, patient is not having any major oxygenation issues or any signs of respiratory distress. I reviewed the nurse practitioner' s note and agree with the documented findings and plan of care. Time with Patient: Less than 30
--- NOTE | 2017-06-10 14:46 | XR ---
EXAMINATION TYPE: XR chest 1V portable DATE OF EXAM: 06/10/2017 COMPARISON: Prior chest x-ray 06/10/2017 HISTORY: Status post lung biopsy, pneumothorax TECHNIQUE: Single frontal view of the chest is obtained. FINDINGS: No significant interval change. IMPRESSION: Only minimal left apical pneumothorax status post lung biopsy.
--- NOTE | 2017-06-10 14:50 | CT ---
EXAMINATION TYPE: CT guided FNA core biopsy left lower lobe lung mass with CT guidance DATE OF EXAM: 06/10/2017 COMPARISON: CT 06/08/2017 HISTORY: Lung mass. CT DLP: 1043 mGycm Automated exposure control for dose reduction was used. Maximal barrier technique was utilized. The skin overlying a suitable path to the lesion was localiz ed using CT and the overlying skin was prepped and draped. Lidocaine used for local anesthesia. A s kin saeed made with a scalpel. Using CT guidance, access was gained to the lesion with a 22-gauge nee dle. 20-gauge guide. Aspirated specimen submitted to cytology. 2 passes were performed in all. Sub sequently core specimen was obtained with an 18-gauge needle through a 17-gauge guide. Following the procedure minimal residual pneumothorax noted. The patient is discharged in stable condition. Hemo stasis achieved. IMPRESSION: SUCCESSFUL CT GUIDED CORE BIOPSY left lower lobe lung mass. PATHOLOGY PENDING. THIS PROCEDURE WAS P ERFORMED BY THE UNDERSIGNED.
--- NOTE | 2017-06-10 16:51 | P.PN ---
Subjective Progress Note Date: 06/10/17 Progress note being dictated for Dr. Alvarez Interval history:Patient is a 57-year-old female without significant respiratory history except remote smoking history quit several years ago came to ER with complaints of chest pain. Patient suddenly felt chest pain at about 4:30 AM which woke her from sleep. Chest was radiating to back and to the epigastric region. Sharp pain associated with short of breath. No aggravating or relieving factors. Otherwise patient is very active with daily exercise routine. Patient otherwise denied any recent surgeries or trauma. No history of blood clots previously. Patient is up-to-date with her colonoscopy last in 2013 and also mammograms. Patient does have history of total abdominal hysterectomy in 1981 for precancerous cervical changes. Chest x-ray showed no infiltrate. Showed left perihilar infiltrate versus libido but he Troponin negative EKG showed sinus tachycardia. CT angiogram of the chest showed suspicious for pulmonary embolism descending segmental branch of right pulmonary artery. It was also found to have 2 spiculated masses in the left upper lobe and lower lobe concerning for malignancy. 06/09/2017 Patient says that she feels better today. No complaints of chest pain or short of breath. No complaints of abdominal pain also no nausea vomiting. Patient had CT abdomen and pelvis showed acute cholecystitis-like picture and hepatic steatosis. Currently patient denied any pain. CT brain showed suspicious for pontine lesion. Patient is being scheduled for lung biopsy tomorrow. Continued on IV heparin. And will hold prior to procedure. All other review of systems negative except the above Current medications reviewed 06/10/[address]-guided FNA of left lower lobe peripheral lung mass per interventional radiology, pathology pending. Postprocedure x-ray reporting minimal left apical pneumothorax. Maintaining O2 sats in the mid 90s on room air. Ambulating, Tolerating exertion well. Afebrile. Objective - Vital Signs Vital signs: Vital Signs Temp 96.7 F L 06/10/17 15:03 Pulse 82 06/10/17 15:03 Resp 16 06/10/17 15:03 BP 130/76 06/10/17 15:03 Pulse Ox 95 06/10/17 15:03 Intake & Output 06/09/17 06/10/17 06/10/17 18:59 06:59 18:59 Intake Total 720 532.529 250 Output Total 400 Balance 320 532.529 250 Weight 68.5 kg Intake: Intake, IV Titration 532.529 Amount Heparin Sodium,Porcine/ 532.529 D5w Pmx 25,000 unit In Dextrose/Water 1 500ml. bag @ 18 UNITS/KG/HR 23. 02 mls/hr IV .[id number] [facility] Rx#:[id number] Oral 720 250 Output: Urine 400 Other: Voiding Method Toilet Toilet # Voids 2 2 4 # Bowel Movements 0 0 - Exam Patient is lying in the bed comfortably, no acute distress, awake alert and oriented.. HEENT: Normocephalic. Neck is supple. Pupils reactive. Nostrils clear. Oral cavity is moist. Ears reveal no drainage. Neck reveals no JVD, carotid bruits, or thyromegaly. CHEST EXAMINATION: Trachea is central. Symmetrical expansion. Lung salmon clear to auscultation and percussion. No crackles, no wheezing, no rhonchi. CARDIAC: Normal S1, S2 with no gallops. No murmurs ABDOMEN: Soft. Bowel sounds normal. No organomegaly. No abdominal bruits. Extremities: reveal no edema. No clubbing or cyanosis Neurologically awake, alert, oriented x3 with well-coordinated movements. No focal deficits noted Skin: No rash or skin lesions. Psychiatric: Cooperative. Nonsuicidal Musculoskeletal: No joint swelling or deformity. Normal range of motion. - Labs CBC & Chem 7: 06/10/17 07:11 06/09/17 08:17 Assessment and Plan Assessment: #1 chest pain due to acute bilateral pulmonary emboli #2 spiculated mass in the left upper lobe and lower lobe, tiny nodules in the right upper lobe, concerning for malignancy, S/P FNA, pathology pending. #3 hyperlipidemia next #4 history of abdominal hysterectomy due to precancerous cervical lesions Plan: Patient will be continued on heparin drip at this time. Chest pain resolved. Patient had CT abdomen and pelvis and CT head was done. Status post IR guided lung biopsy, pathology pending. Follow closely with both Oncology and pulmonary. Prognosis is guarded. Further recommendations to follow. The impression and plan of care has been dictated as directed. : I performed a history and examination of this patient, discussed the same with the dictator. I agree with the dictator's note ,documented as a scribe. Any additional findings or plans will be noted.
[2017-06-10] MEDS ORDERED: HEPARIN SODIUM,PORCINE 5,000 UNIT/ML 1 ML VIAL IV STA (17:38)
[2017-06-10] MEDS ORDERED: HEPARIN SODIUM,PORCINE 10,000 UNIT/ML 1 ML VIAL IV STA (18:11)
[2017-06-10] MEDS ORDERED: SENNOSIDES 8.6 MG TAB PO PRN (19:17)
[2017-06-10] MEDS: ALPRAZolam 0.25 MG TAB PO PRN (21:55)
[2017-06-10] MEDS: TEMAZEPAM 15 MG CAP PO PRN (21:55)
[2017-06-10 23:21] VITALS: RESP 16
[2017-06-11] MEDS: HEPARIN SODIUM,PORCINE/D5W PMX 25,000 UNIT in DEXTROSE/WATER 1 500ML.BAG IV SCH (04:49)
[2017-06-11 06:24] VITALS: BP 127/79; PULSE 72; TEMP 97.1
--- NOTE | 2017-06-11 08:16 | XR ---
EXAMINATION TYPE: XR chest 1V DATE OF EXAM: 06/11/2017 COMPARISON: 06/10/2017 HISTORY: Post lung biopsy. TECHNIQUE: Single frontal view of the chest is obtained. FINDINGS: The previously seen minimal left apical pneumothorax is unchanged with the small pneumotho rax appearing tethered by the left upper lung nodule, also possibly relating to focal reactive pleura l thickening. Left apical nodular density represents the underlying known pulmonary nodule and perino dular hemorrhage postbiopsy. Remainder the lungs are clear. Cardia mediastinal silhouette is within n ormal limits. Osseous structures are intact. IMPRESSION: Redemonstration of a minimal left apical post procedural pneumothorax with left apical n odular opacity representing perinodular postbiopsy hemorrhage in the underlying left apical nodule.
[2017-06-11] MEDS: ALPRAZolam 0.25 MG TAB PO PRN (09:04)
[2017-06-11] MEDS ORDERED: HEPARIN SODIUM,PORCINE 5,000 UNIT/ML 1 ML VIAL IV STA (09:07)
[2017-06-11] MEDS ORDERED: HEPARIN SODIUM,PORCINE 5,000 UNIT/ML 1 ML VIAL IV PRN (09:18)
[2017-06-11] MEDS ORDERED: RIVAROXABAN 15 MG TAB PO SCH (10:30)
--- NOTE | 2017-06-11 10:37 | P.PN ---
Subjective Progress Note Date: 06/11/17 Principal diagnosis: pulmonary embolism, lung mass This is a very pleasant 57-year-old female patient who follows with no primary care physician. She is on no home medications. She has a previous history of seasonal ALLERGIES and hyperlipidemia. She does have a past surgical history of total abdominal hysterectomy in 1981 for precancerous cervical changes, bowel surgery for bowel obstruction in 1997, colonoscopy in 2013. She is up-to- date on her mammograms. No history of cancer. She does have a remote smoking history for greater than 10 years but quit approximately 12 years ago. She has no history of emphysema, no bronchial asthma. She's not been seen by a earth science professor in the past. She presented here to the emergency room approximately 3:30 this morning after being awoken from a sound sleep with midsternal chest discomfort that was radiating to her back. She got up and moved around without any significant change. She was short of breath with exertion.. She drove herself to the hospital. The patient is quite active and was actually working out and on a treadmill yesterday. She is not sedentary. No recent surgeries. No recent prolonged travel. No history of cancer or blood clots in the past. EKG revealed sinus tachycardia with no ST or T-wave abnormalities. Troponins were negative. Her chest x-ray revealed a focal infiltrate in the left upper lobe as well as left perihilar infiltrate versus lymphadenopathy. She had no fever, chills or night sweats. No cough or congestion. She is maintaining O2 saturations in the 90s on room air. A CT angiogram did reveal suspicion for pulmonary embolism with subtle filling defects in the descending segmental branch of the right pulmonary artery with additional possible faint filling defect in the descending segmental branch of the left pulmonary artery. Also, there is additional findings of 2 spiculated masses in the left upper lobe and left lower lobe concerning for malignancy/ metastasis. There is additional tiny nodules and ill-defined opacities that are nonspecific. There is left hilar lymphadenopathy. The patient is seen today 06/08/2017 in consultation on the selective care unit. She is currently on a heparin drip. She is awake and alert in no acute distress. She denies any worsening shortness of breath, cough or congestion. No hemoptysis. No recent weight loss. She remains afebrile. No leukocytosis. The chest discomfort remains intermittent. Occasionally sharp pain. More so on the right side. The patient is seen again today 06/09/2017 in follow-up on the selective care unit. She is awake and alert in no acute distress. She feels nearly back to her baseline. She denies any shortness of breath, cough or congestion. No hemoptysis. No pleuritic type chest pain. She is maintaining good O2 saturations in the 90s on room air. She is quite anxious regarding the potential cancer diagnosis. She is to undergo a computed tomography scan of the abdomen and pelvis. Oncology saw the patient today as well. They would prefer a biopsy prior to the patient's discharge. Interventional radiology is been consulted for computed tomography scan guided FNA of the left lower lobe peripheral lung mass. She remains on heparin drip for now. On 06/10/2017 patient seen in medical surgical floor, status post left upper lung mass fine-needle aspiration biopsy performed by Dr. Davidson. she is sitting up in bed, in no acute distress, she is on room air with O2 sat 95%. She has been afebrile. chest x-ray from 06/10/2017 after the biopsy shows minimal apical pneumothorax, follow-up chest x-ray will be done at 1400. Lung sounds are clear, no rhonchi, no wheezes, no rales. patient denies any significant discomfort at this time. On 06/11/2017 patient is doing well on medical surgical floor. No respiratory difficulties, oxygenation stable on room air with O2 sat from 95-99%. He denies any dyspnea, lung sounds are clear. No sputum production. She continues on heparin drip, her chest x-ray from 06/11/2017 showed a stable small left apical pneumothorax. From pulmonary standpoint patient can be discharged home today on Xarelto starter pack. Objective - Vital Signs Vital signs: Vital Signs Temp 97.1 F L 06/11/17 06:05 Pulse 72 06/11/17 06:05 Resp 16 06/11/17 06:05 BP 127/79 06/11/17 06:05 Pulse Ox 99 06/11/17 06:05 Intake & Output 06/10/17 06/11/17 06/11/17 18:59 06:59 18:59 Intake Total 250 245.333 99.667 Balance 250 245.333 99.667 Weight 68 kg Intake: Intake, IV Titration 0 245.333 99.667 Amount Heparin Sodium,Porcine/ 0 245.333 99.667 D5w Pmx 25,000 unit In Dextrose/Water 1 500ml. bag @ 18 UNITS/KG/HR 23. 02 mls/hr IV .[id number] [facility] Rx#:[id number] Oral 250 Other: Voiding Method Toilet # Voids 4 0 # Bowel Movements 0 - Exam GENERAL EXAM: Alert, active, comfortable in no apparent distress. HEAD: Normocephalic. EYES: Normal reaction of pupils, equal size. NOSE: Clear with pink turbinates. THROAT: No erythema or exudates. NECK: No masses, no JVD. CHEST: No chest wall deformity. LUNGS: Equal air entry with no crackles, wheeze, rhonchi or dullness. CVS: S1 and S2 normal with no audible murmur, regular rhythm. ABDOMEN: No hepatosplenomegaly, normal bowel sounds, no guarding or rigidity. SPINE: No scoliosis or deformity SKIN: No rashes CENTRAL NERVOUS SYSTEM: No focal deficits, tone is normal in all 4 extremities. EXTREMITIES: There is no peripheral edema. No clubbing, no cyanosis. Peripheral pulses are intact. - Labs CBC & Chem 7: 06/10/17 07:11 06/09/17 08:17 Labs: Abnormal Lab Results - Last 24 Hours (Table) 06/11/17 06/11/17 Range/Units 00:12 08:03 APTT 51.5 H 43.6 H (22.0-30.0) sec Assessment and Plan Plan: Impression: #1 Acute chest pain and shortness of breath secondary to bilateral pulmonary emboli. Currently on a heparin drip. #2 Pulmonary nodules, there are tiny nodules in the right upper lobe, there is a spiculated mass in the left upper lobe measuring 2 cm which extends to the anterior apex and associated pleural thickening. There is an additional central left suprahilar masslike finding measuring approximate 1.8 cm. There is also a spiculated lesion in the superior segment of the left lower lobe measuring approximately 2.7 x 2.2 cm, status post left upper lobe fine-needle aspiration biopsy. Small left apical pneumothorax noted on the chest x-ray was taken after the procedure. #3 History of chronic tobacco dependence, quit approximately 12 years ago. #4 Small nodularity in the inner lower left breast, nonspecific. Most recent mammogram on 03/12/2016 revealed no discrete abnormalities. #5 History of precancerous cervical lesions status post hysterectomy in 1981. #6 History of hyperlipidemia. Plan: patient is doing well the left upper lung biopsy, no oxygenation issues, no major respiratory difficulties. Follow-up chest x-ray for small left apical pneumothorax, unchanged in size. CT abdomen and pelvis from 06/09/2017 shows possibility of acute cholecystitis, hepatic steatosis and a small sliding type hiatal hernia. From pulmonary standpoint she is stable for discharge home today , we will initiate Xarelto starter pack and stop the heparin drip. I performed a history & physical examination of the patient and discussed their management with my nurse practitioner, Elke Clark. patient is status post left lung fine-needle aspiration biopsy, post-procedure chest x-ray positive for small apical pneumothorax, patient is not having any major oxygenation issues or any signs of respiratory distress. I reviewed the nurse practitioner' s note and agree with the documented findings and plan of care. Time with Patient: Less than 30
--- NOTE | 2017-06-11 16:11 | P.DS ---
Providers Date of admission: 06/08/17 06:19 Expected date of discharge: 06/11/17 Attending physician: Cordelia Alvarez Consults: 06/08/17 06:17 Consult Physician Urgent Consulting Provider: Kirit Sun Consult Reason/Comments: Pulmonary masses, pulmonary embolism Do you want consulting provider notified?: Yes 06/08/17 11:38 Consult Physician Routine Consulting Provider: Claude Jackson Consult Reason/Comments: Lung mass Do you want consulting provider notified?: Yes Primary care physician: Stated None Dr. Ochoa Hospital Course: Final Diagnoses: #1 chest pain due to acute bilateral pulmonary emboli #2 spiculated mass in the left upper lobe and lower lobe, tiny nodules in the right upper lobe, concerning for malignancy, S/P FNA, pathology pending. #3 hyperlipidemia #4 history of abdominal hysterectomy due to precancerous cervical lesions #5 acute cholecystitis-like picture and hepatic steatosis, per CT, follow-up outpatient with Dr. Galeana #6 Suspicious pontine lesion, per CT, further workup outpatient as per oncology #7 left lower breast small nodularity, nonspecific, reports recent mammogram 2015 as normal. Further outpatient follow-up with PCP/SUPER[employer]. Hospital course:Patient is a 57-year-old female without significant respiratory history except remote smoking history quit several years ago came to ER with complaints of chest pain. Patient suddenly felt chest pain at about 4:30 AM which woke her from sleep. Chest was radiating to back and to the epigastric region. Sharp pain associated with short of breath. No aggravating or relieving factors. Otherwise patient is very active with daily exercise routine. Patient otherwise denied any recent surgeries or trauma. No history of blood clots previously. Patient is up-to-date with her colonoscopy last in 2013 and also mammograms. Patient does have history of total abdominal hysterectomy in 1981 for precancerous cervical changes. Chest x-ray showed no infiltrate. Showed left perihilar infiltrate versus hilar lymphadenopathy.Troponin negative.EKG showed sinus tachycardia. CT angiogram of the chest showed suspicious for pulmonary embolism descending segmental branch of right pulmonary artery. It was also found to have 2 spiculated masses in the left upper lobe and lower lobe concerning for malignancy.Anticoagulated on hepain drip. Evaluated by pulmonary and oncology. CT abdomen and pelvis showed acute cholecystitis-like picture and hepatic steatosis, denies pain, will follow-up with Dr. Galeana outpatient. CT brain showed further workup outpatient as per oncology, possible MRI.Status post CT-guided FNA of left lower lobe peripheral lung mass per interventional radiology, pathology pending.Xarelto initiated. Cleared by all consults for discharge. Patient is being discharged home in a stable condition with guarded prognosis. The impression and plan of care has been dictated as directed. : I performed a history and examination of this patient, discussed the same with the dictator. I agree with the dictator's note ,documented as a scribe. Any additional findings or plans will be noted. Patient Condition at Discharge: Stable Plan - Discharge Summary Discharge Rx Participant: No New Discharge Prescriptions: New ALPRAZolam [Xanax] 0.25 mg PO TID PRN #20 tab PRN Reason: Anxiety Rivaroxaban [Xarelto Starter Pack] 15 mg PO BID #1 package Docusate [Colace] 100 mg PO DAILY #30 capsule Discharge Medication List ALPRAZolam [Xanax] 0.25 mg PO TID PRN #20 tab 06/11/17 [Rx] Docusate [Colace] 100 mg PO DAILY #30 capsule 06/11/17 [Rx] Rivaroxaban [Xarelto Starter Pack] 15 mg PO BID #1 package 06/11/17 [Rx] Follow up Appointment(s)/Referral(s): Kirit Sun MD [STAFF PHYSICIAN] - 06/18/17 1:30 pm Darryl Ochoa MD [REFERRING] - 06/14/17 1:30 pm (schedule prior to dc, new PCP ) Pascual Galeana MD [STAFF PHYSICIAN] - 06/28/17 10:30 am Claude Jackson MD [STAFF PHYSICIAN] - 1 Week (Office closed.pt to schedule.) Patient Instructions/Handouts: Pulmonary Embolism (DC), Fine Needle Aspiration Biopsy (DC) Discharge Disposition: HOME SELF-CARE
== END 2017-06-11 13:36 | disposition home or self-care (01) | DRG 176 ==
LOC: EC 03:45 → 6SEL 06:19 → 4MS4W 06-09 18:04
PROVIDERS: ADMIT Internal Medicine; ATTEND Internal Medicine
PROC: 0BDJ4ZX Extraction of Left Lower Lung Lobe, Percutaneous Endoscopic Approach, Diagnostic (ICD-10-PCS; principal; 2017-06-10)
DX: I26.99 Other pulmonary embolism without acute cor pulmonale (principal); J93.9 Pneumothorax, unspecified; K76.0 Fatty (change of) liver, not elsewhere classified; E78.5 Hyperlipidemia, unspecified; R59.0 Localized enlarged lymph nodes; R91.8 Other nonspecific abnormal finding of lung field; Z87.891 Personal history of nicotine dependence; Z88.1 Allergy status to other antibiotic agents; Z88.5 Allergy status to narcotic agent; Z88.0 Allergy status to penicillin; Z88.2 Allergy status to sulfonamides
CPT/HCPCS: 10022; 36415; 70460; 71010; 71020; 71275; 74177; 77012; 80048; 80053; 82150; 82550; 82553; 83690; 83735; 84484; 85025; 85049; 85610; 85730; 88173; 88305; 93005; 93970; 96361; 96374; 96375; 96376; 99285

== ENCOUNTER → 2017-06-26 | Outpatient (CLI) | payer BC ==
--- NOTE | 2017-06-27 13:45 | PE ---
EXAMINATION TYPE: PET CT fusion skull to thigh DATE OF EXAM: 06/26/2017 CLINICAL HISTORY: 57-year-old female with left lung mass, initial staging. Patient reports surgery in the left lower lobe on June 2017. TECHNIQUE: Following the intravenous administration of 15.47 mCi of F-18 FDG, whole body images are performed from the skull base to the midthigh. Images are reviewed on the computer in the coronal, axial, and sagittal planes. Reconstructed rotating images are created on independent workstation and reviewed on the computer. A localization and attenuation correction CT is performed in conjunction with the PET scan. Glucose level: 95 mg/dL CTDI: 3.55 mGy DLP: 315.72 mGy- COMPARISON: 06/08/2017 and 06/09/2017 FINDINGS: PET: A 1 cm left thyroid nodule shows no discrete FDG uptake. Some mild FDG uptake within right station 2A, probably within a nonenlarged cervical lymph node, max SUV 2.8. Spiculated anterior left upper lobe nodule measures 1.8 cm, max SUV 7.1. Pulmonary nodule superior segment left lower lobe measures 2.1 cm with intense FDG uptake, max SUV 7. 9. Left suprahilar lymph node measuring approximately 1.6 cm shows intense FDG uptake, max SUV 7.7. Left hilar lymph node measuring approximately 1.5 cm shows suspicious intense FDG uptake, max SUV 8.2 . A 9 mm left tracheobronchial angle lymph node shows suspicious mild FDG uptake, max SUV 3.7. Tiny nonspecific 3 mm pulmonary nodule along the minor fissure too small for adequate PET characteriz ation. This can be reassessed at follow-up. Otherwise, physiologic FDG uptake within the abdomen and pelvis. ATTENUATION CORRECTION CT: Visualized paranasal sinuses and mastoid air cells are clear. No cervical lymphadenopathy seen. The heart is normal size without pericardial effusion. Coronary vessel calcifications are present and are a marker for coronary artery disease. Aorta is normal caliber with mild atherosclerotic arch fariha cifications and conventional arch vessel branching anatomy. No consolidation or pleural effusion. Numerous gallstones adherent at the level of the gallbladder fundus. Calculi measure up to 1.5 cm. No abnormal gallbladder distention. Moderate atherosclerotic calcifications throughout the abdominal ao rta and iliac arteries. The adrenal glands are clear. Left hemicolonic diverticulosis. No pericolonic inflammatory change. No dilated small bowel, free fluid, or free air. No mesenteric or retroperitone al lymphadenopathy. Bladder not distended. Uterus surgically absent. Neither ovary is visualized. No abnormal fluid colle ction in the pelvis or pelvic lymphadenopathy. Bones: Bilateral L5 pars defects with grade 1 anterolisthesis at L5-S1. No osseous destructive proces s. IMPRESSION: 1. Findings compatible with neoplasm, possible two synchronous primaries, one in the anterior left up per lobe (1.8 cm) and the second in the superior segment left lower lobe (2.1 cm). 2. Two metastatic left hilar lymph nodes and a 9 mm moderately hypermetabolic left tracheobronchial a ngle lymph node suggestive of ipsilateral mediastinal metastasis. 3. Nonspecific mildly hypermetabolic, nonenlarged upper right cervical lymph node. Probably reactive/ post inflammatory. This area can be followed clinically. 4. Nonspecific 3 mm pulmonary nodule along the minor fissure. A benign etiology is suspected. This ca n be reassessed at follow-up. 5. Incidental: Cholelithiasis, left hemicolonic diverticulosis, and bilateral L5 pars defects with gr hunter 1 L5-S1 anterolisthesis.
== END | disposition home or self-care (01) ==
LOC: RADPETMAIN 10:26
PROVIDERS: ATTEND Internal Medicine
DX: R91.1 Solitary pulmonary nodule (principal); K80.20 Calculus of gallbladder without cholecystitis without obstruction; K57.30 Diverticulosis of large intestine without perforation or abscess without bleeding; M43.17 Spondylolisthesis, lumbosacral region
CPT/HCPCS: 78815; A9552

== ENCOUNTER 2017-07-16 10:26 | Day surgery (SDC) | payer BC ==
[2017-07-14 15:06] VITALS: BMI 22.9
[~2017-07-16 10:26] MED LIST: ALBUTEROL NEB (CONC) 2.5 MG/0.5 ML INHALATION ONE; DEXAMETHASONE SOD PHOSPHATE 10 MG/ML 1 ML VIAL IV ONE; HYDROmorphone 0.5 MG/0.5 ML SYRINGE IVP PRN; LACTATED RINGERS 1,000 ML IV ONE; LACTATED RINGERS 1,000 ML IV SCH; LIDOCAINE 1% 20 ML VIAL (10MG/ML) FOR IV START INTRADERMA PRN; LIDOCAINE 2% (PF) 20 MG/ML 2 ML AMP INHALATION ONE; MIDAZOLAM 2 MG/2 ML VIAL IV PRN; ONDANSETRON 4 MG/2 ML VIAL IVP ONE; Pre Op ABX Message 1 EACH MISC MISCELLANE ONE; SCOPOLAMINE 1.5MG/72HR PATCH TRANSDERM ONE
[2017-07-16] MEDS ORDERED: HYDROmorphone 1 MG/ML 1 ML SYRINGE IVP PRN (11:24)
--- NOTE | 2017-07-16 12:18 | CT ---
EXAMINATION TYPE: CT Chest nadine Lindsey Protocol DATE OF EXAM: 07/16/2017 COMPARISON: 06/26/2017 HISTORY: Lung mass CT DLP: 521 mGycm Automated exposure control for dose reduction was used. FINDINGS: There is a 1.8 x 1.8 cm spiculated mass in the left upper lobe. There is a small 2 mm nodule in the l eft upper lobe posteriorly on image 13. Additional 2 mm nodule in the right upper lobe laterally imag e 18. There is a spiculated mass within the superior segment left lower lobe measuring 1.8 x 1.8 cm. On axial image 28 within the right middle lobe there is a 2 mm nodule. No pleural effusion or consolidative pneumonia. No pneumothorax. Assessment for adenopathy is limited. No abnormality seen with regard to the upper abdomen. There is a 1 cm left thyroid nodule. Shotty adenopathy in the mediastinum noted 1.6 mL left hilar lymph node appears stable on the prior P ET scan. 1.6 cm suprahilar lymph node stable. 1 cm tracheobronchial angle lymph node on the left stable. Atherosclerotic change of the aorta. No ev idence of aneurysm. IMPRESSION: MULTIPLE PULMONARY MASSES WITHIN THE LEFT LUNG HIGHLY SUGGESTIVE OF MALIGNANCY WITH PATHOLOGIC ADENOP ATHY IN THE HILUM SUGGESTIVE OF METASTASES. LESS THAN 5 MM BILATERAL PULMONARY NODULES SUSPICIOUS FOR MALIGNANCY.
[2017-07-16] MEDS ORDERED: PROPOFOL 10 MG/ML 20 ML VIAL IV ONE (12:53)
[2017-07-16] MEDS ORDERED: fentaNYL (PF) 50 MCG/ML 2 ML AMP ONE (12:53)
[2017-07-16] MEDS ORDERED: SUCCINYLCHOLINE CHLORIDE 100 MG/5 ML SYR IV ONE (12:53)
[2017-07-16] MEDS ORDERED: GLYCOPYRROLATE 0.2 MG/ML 2 ML VIAL ONE (12:53)
[2017-07-16] MEDS ORDERED: LABETALOL 5 MG/ML VIAL MDV ONE (12:53)
[2017-07-16] MEDS ORDERED: ROCURONIUM BROMIDE 10 MG/ML 10 ML VIAL IV ONE (12:53)
[2017-07-16] MEDS ORDERED: NEOSTIGMINE 1 MG/ML 10 ML VIAL ONE (12:53)
[2017-07-16] MEDS ORDERED: LACTATED RINGERS 1,000 ML IV ONE (13:46)
[2017-07-16 13:56] VITALS: TEMP 98.3
--- NOTE | 2017-07-16 14:03 | P.PCN ---
Date of Procedure: 07/16/17 Preoperative Diagnosis: Left upper lobe mass, left lower lobe mass Postoperative Diagnosis: Left upper lobe mass, left lower lobe mass Procedure(s) Performed: Navigational bronchoscopy, transbronchial biopsy, transbronchial brushing, bronchial alveolar lavage Anesthesia: SABINE Surgeon: Gerardo Abernathy Warehouse Associate Driver #1: Ericka Fuller Estimated Blood Loss (ml): 0 Pathology: other Condition: stable Disposition: same day Operative Findings: THIS IS A NAVIGATIONAL BRONCHOSCOPY. The patient came in to the preoperative unit where the appropriate the pads were applied. Following that the patient underwent a CAT scan of her chest and the CAT scan images were uploaded into the W4 navigational system and the appropriate mapping was done. There were 2 targets were chosen. The left upper lobe mass and the left lower lobe mass were identified to be the target lesions for biopsy. Following that, the patient was brought into the operating room where she was intubated and placed on a mechanical ventilator. The induction and intubation process was done by anesthesia. Following that, the flexible bronchoscope was inserted through the orotracheal tube and an airway inspection was done. The entire tracheobronchial tree was inspected. The visualized airways included the trachea, bilateral mainstem bronchi, right upper lobe, right middle lobe, right lower lobe, left upper lobe, left lower lobe,segments and subsegments. All of these areas were patent and within normal limits and there was no evidence of any endobronchial tumors or lesions or abnormalities noted. Following that, if hoarseness biopsy was inserted and the appropriate calibrations weren't done and the reference points that were used was the main tova and the secondary tova and the left upper lobe. Under navigational guidance, transbronchial biopsies of the left lower lobe superior segment mass was done. The target lesion was accessed with great accuracy. Transbronchial brushings of the left lower lobe superior segment lesion was also done. Following that the bronchoscope was moved to the left upper lobe apical segment and transbronchial biopsies of the left upper lobe mass was done with navigational guidance and the lesion was again accessed with great accuracy. Addendum of the procedure, bronchial alveolar lavage of the left upper lobe was done. A total of 100 mL of fluid was infused and 25-30 mL's of aspirate was obtained from the left upper lobe. No bleeding was encountered. Total amount of bleeding was less than 5 ML's. The patient was extubated and transferred to recovery in stable condition. A chest x-ray to follow up to rule out pneumothorax and if things are stable and the patient will be discharged home at later stage once cleared by anesthesia.
[2017-07-16 14:11] VITALS: RESP 18
--- NOTE | 2017-07-16 14:15 | XR ---
EXAMINATION TYPE: XR chest 1V DATE OF EXAM: 07/16/2017 HISTORY: Shortness of breath. COMPARISON: 06/11/2017 TECHNIQUE: Single view of the chest is submitted. FINDINGS: Demonstrated are scattered senescent parenchymal change. Left upper lobe mass density is noted. The heart is stable. Hilar and mediastinal structures are within normal limits. Degenerative changes are seen of the dorsal spine. IMPRESSION: 1. Left upper lobe mass density unchanged from prior study.
[2017-07-16 15:01] VITALS: BP 141/86; PULSE 86
== END 2017-07-16 15:14 | disposition home or self-care (01) ==
LOC: ORWHC2ENDO 10:26
PROVIDERS: ATTEND Internal Medicine Critical Care Medicine
DX: C34.12 Malignant neoplasm of upper lobe, left bronchus or lung (principal); R59.0 Localized enlarged lymph nodes; I70.0 Atherosclerosis of aorta; Z86.711 Personal history of pulmonary embolism; Z79.01 Long term (current) use of anticoagulants; Z88.1 Allergy status to other antibiotic agents; Z88.5 Allergy status to narcotic agent; Z88.2 Allergy status to sulfonamides; Z87.891 Personal history of nicotine dependence
CPT/HCPCS: 88104; 88108; 88305; 88342; 88341; 71010; 71250; 31628; 31632; 31623; 31624; 31627; J2250; J1100; J2710; J2405; J3010; J0330; J2704; 31625

== ENCOUNTER → 2018-01-31 | Outpatient (CLI) | payer BC ==
--- NOTE | 2018-01-31 20:22 | CT ---
EXAMINATION TYPE: CT chest w con DATE OF EXAM: 01/31/2018 COMPARISON: 07/16/2017 HISTORY: Lung cancer. Left shoulder and throat pain. CT DLP: 459 mGycm Automated exposure control for dose reduction was used. CONTRAST: CT scan of the chest is performed with IV Contrast, patient injected with 100ml mL of Isovue M300. FINDINGS: LUNGS: Spiculated left upper lobe lung mass now measures approximately 2.3 x 2.9 x 1.8 cm. This is in creased in size compared to the prior exam. 2 mm satellite pulmonary nodule in the left upper lobe. 2 mm nodule in the right upper lobe axial helen ge 14 also suggested. There is a 5 mm nodule right upper lobe axial image 18. This is new from the prior exam. There is a 2 mm nodule within the right middle lobe which is stable compared to the prior exam. 3 mm nodule superior segment left lower lobe not definitively seen on the previous exam. Additional 3 mm nodule right middle lobe and subpleural right middle lobe 1 mm nodule not definitivel y seen on prior exam. No evidence of pleural effusion or pneumothorax. No consolidative pneumonia. There are areas of abnor mal attenuation involving both lung apices which are seen on the previous exam with subpleural nodula rity which is stable. There is subsegmental consolidation extending posteriorly from the hilum. This was also intense uptak e of radiotracer PET scan. This currently measures 3.3 x 1.7 cm and previously measured approximately 2.1 cm.. MEDIASTINUM: Left hilar and suprahilar soft tissue density is seen with the largest area measuring ap proximately 4.3 x 1.8 cm. This region previously measured approximately 1.6 cm in greatest axis. Dominik tional hilar area of abnormal soft tissue density measuring 1.9 x 1.6 cm. Both are suspicious for mas s or adenopathy. There is enhancing subcentimeter pretracheal lymph node. OTHER: Numerous gallstones are seen. There are bilateral intrarenal masses measuring 3.7 cm on the r ight and 2.3 cm on the left. Single sclerotic density measuring less than 5 mm within the mid thoraci c to lower thoracic vertebral segment is nonspecific IMPRESSION: 1. There is progression in size of the previously described multiple masses within the lungs as measu red above compatible with malignancy. 2. There are few 5 mm left new pulmonary nodule seen within the lungs as discussed above. 3. Interval development of bilateral adrenal masses suspicious for metastases.
== END | disposition home or self-care (01) ==
LOC: RADCTMAIN 19:21
PROVIDERS: ATTEND Internal Medicine Critical Care Medicine
DX: C34.90 Malignant neoplasm of unspecified part of unspecified bronchus or lung (principal)
CPT/HCPCS: 71260; Q9967

== ENCOUNTER 2018-02-04 06:09 | Emergency (ER) | payer BC ==
[2018-02-04] MEDS ORDERED: SODIUM CHLORIDE 0.9% 500 ML IV STA (06:45)
[2018-02-04] MEDS ORDERED: ALBUTEROL NEBULIZED 2.5 MG/3 ML INHALATION STA (06:45)
[2018-02-04 06:57] LABS: Basophils # (A) 0.1 k/uL (0-0.2); Basophils % (A) 1 %; Eosinophils # (A) 0.2 k/uL (0-0.7); Eosinophils % (A) 3 %; HCT 40.4 % (34.0-46.0); HGB 13.5 gm/dL (11.4-16.0); Lymphocytes # (A) 1.8 k/uL (1.0-4.8); Lymphocytes % (A) 21 %; MCH 28.5 pg (25.0-35.0); MCHC 33.4 g/dL (31.0-37.0); MCV 85.3 fL (80.0-100.0); Mean Platelet Volume 6.5; Monocytes # (A) 0.6 k/uL (0-1.0); Monocytes % (A) 7 %; Neutrophils # (A) 5.7 k/uL (1.3-7.7); Neutrophils % (A) 67 %; Platelet Count 331 k/uL (150-450); RBC 4.73 m/uL (3.80-5.40); WBC 8.6 k/uL (3.8-10.6)
[2018-02-04] MEDS ORDERED: fentaNYL (PF) 50 MCG/ML 2 ML AMP IV STA (06:57)
--- NOTE | 2018-02-04 06:58 | ED ---
SOB HPI - General Source: patient Mode of arrival: wheelchair Limitations: no limitations - History of Present Illness MD Complaint: shortness of breath, chest pain Onset/Timin -: hour(s) Severity: moderate Quality: aching Consistency: constant Improves With: nothing Worsens With: inspiration Known History Of: other Associated Symptoms: chest pain, cough Treatments Prior to Arrival: none <Melvin Nolasco - Last Filed: 02/04/18 06:58> <Vadim Crandall - Last Filed: 02/04/18 10:54> - General Chief Complaint: Shortness of Breath Stated Complaint: Shortness of Breath Time Seen by Provider: 02/04/18 06:45 - History of Present Illness Initial Comments: This patient is a 57-year-old woman with history of stage III lung cancer diagnosed in June, who states that she has not had treatment, presenting with going on 24 hours of right-sided chest pain, dyspnea, and nonproductive cough. The patient states that the symptoms came on yesterday in the morning she noted them while she was getting up. She states that she thought it might improve over the course the day but it has not resolved. She has not noted fevers or chills. The cough is nonproductive. She rates the pain as aching, moderate, a little bit worse with deep breath and with palpation. No relieving factors. (Melvin Nolasco) - Related Data Home Medications Medication Instructions Recorded Confirmed Apricot Seed 1 cap PO DAILY 02/04/18 02/04/18 Cbd Oil 3 - 4 drops SL DAILY 02/04/18 02/04/18 Cholecalciferol [Vitamin D3] 1,000 unit PO DAILY 02/04/18 02/04/18 [place]-3 Fatty Acids/Fish Oil [Fish 1 cap PO DAILY 02/04/18 02/04/18 Oil 1,000 mg Softgel] Turmeric Root Extract [Turmeric] 500 mg PO DAILY 02/04/18 02/04/18 Allergies Allergy/AdvReac Type Severity Reaction Status Date / Time amoxicillin [From Trimox] Allergy Swelling Verified 02/04/18 07:19 erythromycin base Allergy Swelling Verified 02/04/18 07:19 morphine Allergy Swelling Verified 02/04/18 07:19 Sulfa (Sulfonamide Allergy Rash/Hives Verified 02/04/18 07:19 Antibiotics) Review of Systems ROS Other: All systems not noted in ROS Statement are negative. Constitutional: Denies: fever, chills, weakness Respiratory: Reports: as per HPI, cough, dyspnea. Denies: hemoptysis Cardiovascular: Reports: as per HPI, chest pain. Denies: palpitations, orthopnea, edema, syncope Gastrointestinal: Denies: abdominal pain, vomiting, diarrhea Genitourinary: Denies: dysuria Musculoskeletal: Denies: back pain Skin: Denies: rash Neurological: Denies: headache, weakness, numbness <ConstanceMelvin - Last Filed: 02/04/18 06:58> ROS Other: All systems not noted in ROS Statement are negative. <Vadim Crandall - Last Filed: 02/04/18 10:54> ROS Statement: Those systems with pertinent positive or pertinent negative responses have been documented in the HPI. Past Medical History Past Medical History: No Reported History Additional Past Medical History / Comment(s): PE within the last 30 days, current lung mass. History of Any Multi-Drug Resistant Organisms: None Reported Past Surgical History: Hysterectomy Additional Past Surgical History / Comment(s): bowel obstruction. Past Anesthesia/Blood Transfusion Reactions: No Reported Reaction Past Psychological History: No Psychological Hx Reported Smoking Status: Former smoker Past Alcohol Use History: Occasional Past Drug Use History: None Reported - Past Family History Mother Family Medical History: Coronary Artery Disease (CAD), Diabetes Mellitus Father Family Medical History: No Reported History <ConstanceMelvin - Last Filed: 02/04/18 06:58> General Exam Limitations: no limitations General appearance: alert, in no apparent distress Head exam: Present: atraumatic, normocephalic Eye exam: Present: normal appearance. Absent: scleral icterus, conjunctival injection ENT exam: Present: normal oropharynx Respiratory exam: Present: normal lung sounds bilaterally, wheezes, chest wall tenderness. Absent: respiratory distress, rales (Mild expiratory wheeze), rhonchi, stridor, accessory muscle use, decreased breath sounds, prolonged expiratory Cardiovascular Exam: Present: regular rate, normal rhythm, normal heart sounds. Absent: systolic murmur, diastolic murmur, rubs, gallop GI/Abdominal exam: Present: soft. Absent: distended, tenderness, guarding, rebound, mass Extremities exam: Present: normal inspection, normal capillary refill. Absent: pedal edema, calf tenderness Back exam: Present: normal inspection. Absent: CVA tenderness (R), CVA tenderness (L) Neurological exam: Present: alert Skin exam: Present: warm, dry, intact, normal color. Absent: rash <Melvin Nolasco - Last Filed: 02/04/18 06:58> Vital Signs 02/04/18 02/04/18 02/04/18 06:12 06:29 06:35 Temperature 97.9 F Pulse Rate 100 Respiratory 18 20 19 Rate Blood Pressure 150/90 O2 Sat by Pulse 100 Oximetry 02/04/18 02/04/18 02/04/18 06:53 07:05 07:13 Temperature Pulse Rate 82 86 Respiratory 20 Rate Blood Pressure O2 Sat by Pulse Oximetry 02/04/18 02/04/18 07:50 09:36 Temperature Pulse Rate 94 74 Respiratory 18 16 Rate Blood Pressure 144/65 133/67 O2 Sat by Pulse 98 99 Oximetry Medical Decision Making - EKG Data -: EKG Interpreted by Me EKG shows normal: sinus rhythm, axis (Normal), intervals (Normal), QRS complexes (Normal), ST-T waves (Normal) Rate: normal (Rate approximately 86 bpm) Interpretation: normal EKG <Melvin Nolasco - Last Filed: 02/04/18 06:58> - Lab Data Result diagrams: 02/04/18 06:32 02/04/18 06:32 <Vadim Crandall - Last Filed: 02/04/18 10:54> - Medical Decision Making Patient's CAT scan showed no PE and showed no acute change from the CAT scan 1 week ago. I spoke with Dr. Josemanuel Abernathy wanted to see the patient in his office at 2:15 today. I spoke with the patient she was in agreement with this and she was very comfortable going home. (Vadim Crandall) - Lab Data Lab Results 02/04/18 02/04/18 02/04/18 Range/Units 06:32 06:32 06:32 WBC 8.6 (3.8-10.6) k/uL RBC 4.73 (3.80-5.40) m/uL Hgb 13.5 (11.4-16.0) gm/dL Hct 40.4 (34.0-46.0) % MCV 85.3 (80.0-100.0) fL MCH 28.5 (25.0-35.0) pg MCHC 33.4 (31.0-37.0) g/dL RDW 13.0 (11.5-15.5) % Plt Count 331 (150-450) k/uL Neutrophils % 67 % Lymphocytes % 21 % Monocytes % 7 % Eosinophils % 3 % Basophils % 1 % Neutrophils # 5.7 (1.3-7.7) k/uL Lymphocytes # 1.8 (1.0-4.8) k/uL Monocytes # 0.6 (0-1.0) k/uL Eosinophils # 0.2 (0-0.7) k/uL Basophils # 0.1 (0-0.2) k/uL PT (9.0-12.0) sec INR (<1.2) APTT (22.0-30.0) sec D-Dimer (<0.60) mg/L FEU Sodium 142 (137-145) mmol/L Potassium 4.5 (3.5-5.1) mmol/L Chloride 104 (98-107) mmol/L Carbon Dioxide 25 (22-30) mmol/L Anion Gap 13 mmol/L BUN 13 (7-17) mg/dL Creatinine 0.59 (0.52-1.04) mg/dL Est GFR (CKD-EPI)AfAm >90 (>60 ml/min/1.73 sqM) Est GFR (CKD-EPI)NonAf >90 (>60 ml/min/1.73 sqM) Glucose 107 H (74-99) mg/dL Calcium 9.3 (8.4-10.2) mg/dL Total Bilirubin 0.6 (0.2-1.3) mg/dL AST 17 (14-36) U/L ALT 23 (9-52) U/L Alkaline Phosphatase 101 (38-126) U/L Total Creatine Kinase 27 L (30-135) U/L CK-MB (CK-2) <0.2 (0.0-2.4) ng/mL CK-MB (CK-2) Rel Index Troponin I <0.012 (0.000-0.034) ng/mL Total Protein 6.7 (6.3-8.2) g/dL Albumin 3.9 (3.5-5.0) g/dL 02/04/18 Range/Units 06:32 WBC (3.8-10.6) k/uL RBC (3.80-5.40) m/uL Hgb (11.4-16.0) gm/dL Hct (34.0-46.0) % MCV (80.0-100.0) fL MCH (25.0-35.0) pg MCHC (31.0-37.0) g/dL RDW (11.5-15.5) % Plt Count (150-450) k/uL Neutrophils % % Lymphocytes % % Monocytes % % Eosinophils % % Basophils % % Neutrophils # (1.3-7.7) k/uL Lymphocytes # (1.0-4.8) k/uL Monocytes # (0-1.0) k/uL Eosinophils # (0-0.7) k/uL Basophils # (0-0.2) k/uL PT 9.4 (9.0-12.0) sec INR 0.9 (<1.2) APTT 23.1 (22.0-30.0) sec D-Dimer 0.89 H (<0.60) mg/L FEU Sodium (137-145) mmol/L Potassium (3.5-5.1) mmol/L Chloride (98-107) mmol/L Carbon Dioxide (22-30) mmol/L Anion Gap mmol/L BUN (7-17) mg/dL Creatinine (0.52-1.04) mg/dL Est GFR (CKD-EPI)AfAm (>60 ml/min/1.73 sqM) Est GFR (CKD-EPI)NonAf (>60 ml/min/1.73 sqM) Glucose (74-99) mg/dL Calcium (8.4-10.2) mg/dL Total Bilirubin (0.2-1.3) mg/dL AST (14-36) U/L ALT (9-52) U/L Alkaline Phosphatase (38-126) U/L Total Creatine Kinase (30-135) U/L CK-MB (CK-2) (0.0-2.4) ng/mL CK-MB (CK-2) Rel Index Troponin I (0.000-0.034) ng/mL Total Protein (6.3-8.2) g/dL Albumin (3.5-5.0) g/dL Disposition <Melvin Nolasoc - Last Filed: 02/04/18 06:58> Is patient prescribed a controlled substance at d/c from ED?: No Time of Disposition: 10:53 <Vadim Crandall - Last Filed: 02/04/18 10:54> Clinical Impression: History of lung cancer, Right-sided chest pain Disposition: HOME SELF-CARE Instructions: Chest Pain (ED) Referrals: Darryl Ochoa MD [Primary Care Provider] - 1-2 days
[2018-02-04] MEDS ORDERED: ONDANSETRON 4 MG/2 ML VIAL IVP STA (07:10)
[2018-02-04 07:11] LABS: ALT 23 U/L (9-52); AST 17 U/L (14-36); Albumin 3.9 g/dL (3.5-5.0); Alkaline Phosphatase 101 U/L (38-126); Anion Gap 13 mmol/L; Blood Urea Nitrogen 13 mg/dL (7-17); Calcium 9.3 mg/dL (8.4-10.2); Carbon Dioxide 25 mmol/L (22-30); Chloride 104 mmol/L (98-107); Glucose 107 mg/dL (74-99); Potassium 4.5 mmol/L (3.5-5.1); Sodium 142 mmol/L (137-145); Total Bilirubin 0.6 mg/dL (0.2-1.3); Total Protein 6.7 g/dL (6.3-8.2)
--- NOTE | 2018-02-04 07:11 | XR ---
EXAMINATION TYPE: XR chest 1V portable DATE OF EXAM: 02/04/2018 COMPARISON: 07/16/2017 HISTORY: Short of breath. Lung cancer. TECHNIQUE: Single frontal view of the chest is obtained. FINDINGS: There is a 4 cm area of masslike density at the superior left pulmonary hilum. There is so me patchy infiltrate in the left upper lobe. There is volume loss on the left side an elevated left d iaphragm. Right lung is clear. There are chest leads. IMPRESSION: Increased density at the left pulmonary hilum consistent with tumor that appears increas ed compared to last chest x-ray. Left upper lobe infiltrate is similar. No heart failure. There is ne w volume loss on the left side that probably relates to some left upper lobe atelectasis or diaphragm paralysis.
[2018-02-04 07:14] LABS: INR 0.9 (<1.2); Partial Thromboplastin Time 23.1 sec (22.0-30.0); Prothrombin Time 9.4 sec (9.0-12.0)
[2018-02-04 07:18] LABS: Creatine Kinase 27 U/L (30-135)
[2018-02-04 07:30] LABS: Creatine Kinase MB <0.2 ng/mL (0.0-2.4); D-Dimer 0.89 mg/L FEU (<0.60); Troponin I <0.012 ng/mL (0.000-0.034)
--- NOTE | 2018-02-04 09:37 | CT ---
EXAMINATION TYPE: CT chest angio for PE DATE OF EXAM: 02/04/2018 COMPARISON: 06/08/2017 HISTORY: 57 year-old female history of lung cancer, elevated d-dimer, pain, assess for PE TECHNIQUE: Contiguous axial scanning of the chest performed with IV Contrast, patient injected with 1 00 ml mL of Isovue 370. Coronal/sagittal MIP reconstructions performed. CT DLP: 444 mGycm Automated exposure control for dose reduction was used. FINDINGS: Heart normal size without pericardial effusion. Aorta normal caliber. The joint was branching anatomy and mild atherosclerotic arch calcifications. A precarinal lymph node measures 8 mm, slightly larger from prior. A left tracheobronchial angle lymp h node which was hypermetabolic on PET to smaller 7 mm versus 1.2 cm, previously. Satisfactory opacification of the pulmonary to systemic. While there is no evidence for pulmonary emb olus, there is marked narrowing of the distal left main pulmonary artery with a caliber transition fr om 1.2 cm down to 2.5 mm. The ensuing pulmonary artery or branches are narrowed throughout the left l jorge. There is also encasement and narrowing of the left superior pulmonary vein. Increasing encasemen t of all left hilar structures with enlarging left hilar lymphadenopathy now contiguous with abnormal soft tissue adjacent to the AP window measuring 4.7 x 1.9 cm and in turn continuous with the left up per lobe spiculated neoplasm. 3.1 cm versus 2.0 cm, previously. The encasing soft tissue markedly narrows the left upper lobe bronchus as well as the superior segmen t left lower lobe bronchus. Superior segment left lower lobe mass has enlarged at 3.7 cm versus 2.3 cm, previously. Multiple new bilateral pulmonary nodules are present measuring up to 5 mm, more numerous on the right . No pleural effusion. New bilateral adrenal masses measuring up to 3.9 cm on the right and 3.0 cm on the left. Diverticulos is along the left hemicolon partially visualized. Bones: No osseous destructive process identified. IMPRESSION: 1. WHILE THERE IS NO EVIDENCE FOR PULMONARY EMBOLUS, THERE IS NEOPLASM ENCASING LEFT HILAR STRUCTURES WHICH HAS INCREASED FROM 06/08/2017 AND THE PATIENT'S PRIOR PET/CT. THIS CAUSES A CALIBER CHANGE OF T HE DISTAL LEFT MAIN PULMONARY ARTERY FROM 1.2 CM DOWN TO ONLY 2.5 MM. THE DISTAL PULMONARY ARTERIAL B RANCHES on the left ARE ATTENUATED. 2. PROGRESSIVE NEOPLASM LEFT UPPER LOBE NOW CONTIGUOUS WITH THE LEFT HILAR SOFT TISSUE AND ADDITIONAL PROGRESSIVE NEOPLASM SUPERIOR SEGMENT LEFT LOWER LOBE. 3. ENCASING SOFT TISSUE MARKEDLY NARROWS THE LEFT UPPER LOBE BRONCHUS WELL THE SUPERIOR SEGMENT LEFT LOWER LOBE BRONCHUS. 4. MULTIPLE NEW BILATERAL PULMONARY NODULES MEASURING UP TO 5 MM AND NEW BILATERAL ADRENAL MASSES ONEL SURING UP TO 3.9 CM.
[2018-02-04 11:21] VITALS: BP 133/73; PULSE 93; RESP 18; TEMP 98.3
== END 2018-02-04 11:21 | disposition home or self-care (01) ==
LOC: EC 06:09
DX: R07.9 Chest pain, unspecified (principal); R06.02 Shortness of breath; R05 Cough; C34.90 Malignant neoplasm of unspecified part of unspecified bronchus or lung; Z87.891 Personal history of nicotine dependence; Z79.899 Other long term (current) drug therapy; Z88.1 Allergy status to other antibiotic agents; Z88.0 Allergy status to penicillin; Z88.2 Allergy status to sulfonamides; Z88.5 Allergy status to narcotic agent
CPT/HCPCS: 36415; 94640; 93005; 85379; 80053; 82550; 82553; 84484; 85025; 85610; 85730; 71045; 71275; 99285; 96374; 96375; J2405; J3010; Q9967

== ENCOUNTER 2018-02-27 19:12 | Emergency (ER) | payer BC ==
[2018-02-27] MEDS ORDERED: SODIUM CHLORIDE 0.9% 1,000 ML IV STA (20:31)
[2018-02-27] MEDS ORDERED: ONDANSETRON 4 MG/2 ML VIAL IVP STA (20:31)
[2018-02-27] MEDS ORDERED: KETOROLAC 30 MG/ML 1 ML VIAL IVP STA (20:31)
[2018-02-27 20:50] LABS: Basophils # (A) 0.1 k/uL (0-0.2); Basophils % (A) 1 %; Eosinophils # (A) 0.4 k/uL (0-0.7); Eosinophils % (A) 4 %; HCT 42.8 % (34.0-46.0); HGB 13.9 gm/dL (11.4-16.0); Lymphocytes % (A) 22 %; MCH 27.3 pg (25.0-35.0); MCHC 32.5 g/dL (31.0-37.0); MCV 84.2 fL (80.0-100.0); Mean Platelet Volume 6.6; Monocytes # (A) 0.6 k/uL (0-1.0); Monocytes % (A) 6 %; Neutrophils # (A) 5.7 k/uL (1.3-7.7); Neutrophils % (A) 65 %; Platelet Count 358 k/uL (150-450); RBC 5.08 m/uL (3.80-5.40); WBC 8.9 k/uL (3.8-10.6)
[2018-02-27 21:00] LABS: ALT 30 U/L (9-52); AST 22 U/L (14-36); Albumin 3.9 g/dL (3.5-5.0); Alkaline Phosphatase 105 U/L (38-126); Amylase 43 U/L (30-110); Anion Gap 11 mmol/L; Blood Urea Nitrogen 14 mg/dL (7-17); Calcium 9.6 mg/dL (8.4-10.2); Carbon Dioxide 24 mmol/L (22-30); Chloride 105 mmol/L (98-107); Glucose 97 mg/dL (74-99); Lipase 100 U/L (23-300); Potassium 4.4 mmol/L (3.5-5.1); Sodium 140 mmol/L (137-145); Total Bilirubin 0.3 mg/dL (0.2-1.3); Total Protein 6.8 g/dL (6.3-8.2)
[2018-02-27 21:05] LABS: Appearance,Urine Clear (Clear); Bilirubin,Urine Negative (Negative); Blood,Urine Negative (Negative); Color,Urine Light Yellow; Glucose,Urine (UA) Negative (Negative); Ketones,Urine Negative (Negative); Leukocyte Esterase,Urine Large (Negative); Mucus,Urine Rare /hpf; Nitrite,Urine Negative (Negative); PH, Urine 6.5 (5.0-8.0); Protein,Urine Negative (Negative); RBC,Urine <1 /hpf (0-5); Specific Gravity,Urine 1.007 (1.001-1.035); Squamous Epithelial Cell,Urine <1 /hpf (0-4); Urobilinogen,Urine <2.0 mg/dL (<2.0); WBC,Urine 51 /hpf (0-5)
[2018-02-27] MEDS ORDERED: fentaNYL (PF) 50 MCG/ML 2 ML AMP IV STA (21:24)
--- NOTE | 2018-02-27 21:45 | ED ---
General Adult HPI - General Chief complaint: Abdominal Pain Stated complaint: back & side pain/cancer pt Time Seen by Provider: 02/27/18 20:17 Source: patient, RN notes reviewed Mode of arrival: ambulatory Limitations: no limitations - History of Present Illness Initial comments: 57-year-old female presents to the emergency department for right sided abdominal pain x 4 days. Patient has a history of stage IV lung cancer and is on comfort care. Patient states the pain in her abdomen has been keeping her up at night. Patient states pain is mostly in the right upper abdomen and radiates to the back. Patient does have a history of gallstones. Patient is currently taking medical marijuana to help her nausea. Patient admits to nausea denies vomiting. Bowel movements normal. Patient has no other complaints at this time including shortness of breath, chest pain, abdominal pain, nausea or vomiting, headache, or visual changes. - Related Data Home Medications Medication Instructions Recorded Confirmed Apricot Seed 1 cap PO DAILY 02/04/18 02/04/18 Cbd Oil 3 - 4 drops SL DAILY 02/04/18 02/04/18 Cholecalciferol [Vitamin D3] 1,000 unit PO DAILY 02/04/18 02/04/18 [place]-3 Fatty Acids/Fish Oil [Fish 1 cap PO DAILY 02/04/18 02/04/18 Oil 1,000 mg Softgel] Turmeric Root Extract [Turmeric] 500 mg PO DAILY 02/04/18 02/04/18 Allergies Allergy/AdvReac Type Severity Reaction Status Date / Time amoxicillin [From Trimox] Allergy Swelling Verified 02/27/18 19:33 erythromycin base Allergy Swelling Verified 02/27/18 19:33 morphine Allergy Swelling Verified 02/27/18 19:33 Sulfa (Sulfonamide Allergy Rash/Hives Verified 02/27/18 19:33 Antibiotics) Review of Systems ROS Statement: Those systems with pertinent positive or pertinent negative responses have been documented in the HPI. ROS Other: All systems not noted in ROS Statement are negative. Past Medical History Past Medical History: No Reported History Additional Past Medical History / Comment(s): PE within the last 30 days, current lung mass. History of Any Multi-Drug Resistant Organisms: None Reported Past Surgical History: Hysterectomy Additional Past Surgical History / Comment(s): bowel obstruction. Past Anesthesia/Blood Transfusion Reactions: No Reported Reaction Past Psychological History: No Psychological Hx Reported Smoking Status: Former smoker Past Alcohol Use History: Occasional Past Drug Use History: None Reported - Past Family History Mother Family Medical History: Coronary Artery Disease (CAD), Diabetes Mellitus Father Family Medical History: No Reported History General Exam Limitations: no limitations General appearance: alert, in no apparent distress Head exam: Present: atraumatic, normocephalic, normal inspection Eye exam: Present: normal appearance. Absent: scleral icterus, conjunctival injection ENT exam: Present: normal exam, mucous membranes moist Neck exam: Present: normal inspection, full ROM. Absent: tenderness, meningismus, lymphadenopathy Respiratory exam: Present: decreased breath sounds (decreased breath sounds LLL) . Absent: respiratory distress, wheezes, rales, rhonchi, stridor Cardiovascular Exam: Present: regular rate, normal rhythm, normal heart sounds. Absent: systolic murmur, diastolic murmur, rubs, gallop, clicks GI/Abdominal exam: Present: soft, tenderness (tenderness in the RUQ, RLQ.), normal bowel sounds. Absent: distended, guarding, rebound, rigid Back exam: Present: tenderness (mild tenderness to right lateral lower back). Absent: CVA tenderness (R), CVA tenderness (L) Neurological exam: Present: alert, oriented X3, CN II-XII intact Psychiatric exam: Present: normal affect, normal mood Course Vital Signs 02/27/18 19:28 Temperature 97.9 F Pulse Rate 99 Respiratory 16 Rate Blood Pressure 163/106 O2 Sat by Pulse 94 L Oximetry Medical Decision Making - Medical Decision Making 57-year-old female presents to the emergency department for a chief complaint of abdominal pain 4 days. Patient has a history of stage IV lung cancer and is on comfort care for this. Patient admits to nausea. Patient states the pain in the right upper abdomen has been keeping her up at night and is radiating to her back. Patient has a history of gallstones. Vitals show no temperature, 94% on room air, no respiratory distress. CBC and CMP unremarkable. Patient has large leukocyte Estrace in the urine and will be treated for urinary tract infection. Findings are most consistent with worsening metastatic disease of the left lung. Interval development of nodular left sided pleural thickening, atelectasis and effusion, likely malignant effusion with worsened circumferential thickening of the left eye Will structures and increased degree of bronchial narrowing. Patient was given Toradol, fentanyl, and Dilaudid in the emergency department. Patient is in no respiratory distress at discharge. She is to follow-up with oncologist. She is to return to the emergency Department if she has any worsening symptoms or respiratory distress. - Lab Data Result diagrams: 02/27/18 20:25 02/27/18 20:25 Lab Results 02/27/18 02/27/18 02/27/18 Range/Units 20:25 20:25 20:25 WBC 8.9 (3.8-10.6) k/uL RBC 5.08 (3.80-5.40) m/uL Hgb 13.9 (11.4-16.0) gm/dL Hct 42.8 (34.0-46.0) % MCV 84.2 (80.0-100.0) fL MCH 27.3 (25.0-35.0) pg MCHC 32.5 (31.0-37.0) g/dL RDW 13.0 (11.5-15.5) % Plt Count 358 (150-450) k/uL Neutrophils % 65 % Lymphocytes % 22 % Monocytes % 6 % Eosinophils % 4 % Basophils % 1 % Neutrophils # 5.7 (1.3-7.7) k/uL Lymphocytes # 2.0 (1.0-4.8) k/uL Monocytes # 0.6 (0-1.0) k/uL Eosinophils # 0.4 (0-0.7) k/uL Basophils # 0.1 (0-0.2) k/uL Sodium 140 (137-145) mmol/L Potassium 4.4 (3.5-5.1) mmol/L Chloride 105 (98-107) mmol/L Carbon Dioxide 24 (22-30) mmol/L Anion Gap 11 mmol/L BUN 14 (7-17) mg/dL Creatinine 0.50 L (0.52-1.04) mg/dL Est GFR (CKD-EPI)AfAm >90 (>60 ml/min/1.73 sqM) Est GFR (CKD-EPI)NonAf >90 (>60 ml/min/1.73 sqM) Glucose 97 (74-99) mg/dL Calcium 9.6 (8.4-10.2) mg/dL Total Bilirubin 0.3 (0.2-1.3) mg/dL AST 22 (14-36) U/L ALT 30 (9-52) U/L Alkaline Phosphatase 105 (38-126) U/L Total Protein 6.8 (6.3-8.2) g/dL Albumin 3.9 (3.5-5.0) g/dL Amylase 43 (30-110) U/L Lipase 100 (23-300) U/L Urine Color Light Yellow Urine Appearance Clear (Clear) Urine pH 6.5 (5.0-8.0) Ur Specific [place] 1.007 (1.001-1.035) Urine Protein Negative (Negative) Urine Glucose (UA) Negative (Negative) Urine Ketones Negative (Negative) Urine Blood Negative (Negative) Urine Nitrite Negative (Negative) Urine Bilirubin Negative (Negative) Urine Urobilinogen <2.0 (<2.0) mg/dL Ur Leukocyte Esterase Large H (Negative) Urine RBC <1 (0-5) /hpf Urine WBC 51 H (0-5) /hpf Ur Squamous Epith Cells <1 (0-4) /hpf Urine Mucus Rare H (None) /hpf Disposition Clinical Impression: Abdominal pain Disposition: HOME SELF-CARE Condition: Good Instructions: Abdominal Pain (ED) Additional Instructions: Please take home pain medications for pain. Please follow-up with primary care in 1-2 days. Return to the emergency department if you have any worsening symptoms or difficulty breathing. Is patient prescribed a controlled substance at d/c from ED?: No Referrals: Darryl Ochoa MD [Primary Care Provider] - 1-2 days Time of Disposition: 22:31
--- NOTE | 2018-02-27 22:06 | CT ---
EXAMINATION TYPE: CT ChestAbdPelvis w con DATE OF EXAM: 02/27/2018 COMPARISON: HISTORY: Right sided rib pain. History of stage [address] DLP: 508.6 mGycm Automated exposure control for dose reduction was used. CONTRAST: CT scan of the chest, abdomen and pelvis is performed without Oral Contrast and with IV Contrast, pat ient injected with 100 mL of Isovue 300. FINDINGS: LUNGS: Interval development of pleural thickening and effusion on the left with increased atelectasis and narrowing of the hilar structures. This is consistent with worsening malignancy in the left lung . The predominant spiculated left upper lobe mass is again present with adjacent areas of atelectasis which is somewhat limited optimal evaluation but appears grossly similar. At least 3 nodules are aga in seen in the right lung which are essentially stable in the short interval. MEDIASTINUM: Conglomerate hilar and mediastinal lymphadenopathy is unchanged. OTHER: No additional significant abnormality is seen. LIVER/GB: No significant abnormality is appreciated. PANCREAS: No significant abnormality is seen. SPLEEN: No significant abnormality is seen. ADRENALS: Bilateral adrenal masses most consistent with metastatic disease are unchanged. KIDNEYS: No significant abnormality is seen. BOWEL: No significant abnormality is seen. REPRODUCTIVE ORGANS: No gross abnormality seen. LYMPH NODES: No greater than 1 cm abdominal or pelvic lymph nodes are appreciated. OSSEOUS STRUCTURES: No significant abnormality is seen. No suspicious osseous lesions. IMPRESSION: 1. Findings are most consistent with worsening metastatic disease of the left lung. Interval developm ent of nodular left-sided pleural thickening, atelectasis and effusion, likely malignant effusion wit h worsened circumferential thickening of left hilar structures and increased degree of bronchial narr owing. 2. There remains conglomerate lymphadenopathy involving the left brock and mediastinum also most consi stent with metastasis 3. Redemonstration of bilateral adrenal masses most consistent with metastatic disease.
[2018-02-27] MEDS ORDERED: HYDROmorphone 1 MG/ML 1 ML SYRINGE IVP STA (22:26)
[2018-02-27 22:44] VITALS: BP 172/89; PULSE 100; TEMP 97.5
[2018-02-27 23:21] VITALS: RESP 14
== END 2018-02-27 23:20 | disposition home or self-care (01) ==
LOC: EC 19:12
DX: R10.9 Unspecified abdominal pain (principal); R11.0 Nausea; Z87.19 Personal history of other diseases of the digestive system; Z87.891 Personal history of nicotine dependence; Z90.710 Acquired absence of both cervix and uterus; Z88.0 Allergy status to penicillin; Z88.1 Allergy status to other antibiotic agents; Z88.2 Allergy status to sulfonamides
CPT/HCPCS: 99284; 96374; 96375 ×3; 96361; 36415; 80053; 82150; 83690; 85025; 81001; 71260; 74177; J2405; J3010; J1885; J1170; Q9967

== ENCOUNTER 2018-03-01 23:06 | Observation (INO) | payer BC ==
[2018-03-01] MEDS ORDERED: IPRATROPIUM-ALBUTEROL 3 ML NEB INHALATION STA (23:36)
[2018-03-01] MEDS ORDERED: HYDROmorphone 1 MG/ML 1 ML SYRINGE IVP STA (23:59)
[2018-03-02] MEDS ORDERED: HYDROmorphone 1 MG/ML 1 ML SYRINGE IVP STA
--- NOTE | 2018-03-02 00:10 | ED ---
General Adult HPI - General Chief complaint: Shortness of Breath Stated complaint: SOB Time Seen by Provider: 03/01/18 23:35 Source: patient, RN notes reviewed, old records reviewed Mode of arrival: wheelchair Limitations: no limitations - History of Present Illness Initial comments: This is a 57-year-old female the ER for evaluation. Patient resents today with multiple complaints of mainly significant shortness of breath. Significant generalized body pain. Patient has no history of CVA with multiple medical comorbidities. Patient states she was seen in ER 2 days ago for similar symptoms but has not improved at all. No fevers, no congestion no recent travel history no sick contacts no recent hospitalization - Related Data Home Medications Medication Instructions Recorded Confirmed Apricot Seed 1 cap PO DAILY 02/04/18 02/04/18 Cbd Oil 3 - 4 drops SL DAILY 02/04/18 02/04/18 Cholecalciferol [Vitamin D3] 1,000 unit PO DAILY 02/04/18 02/04/18 Swengel-3 Fatty Acids/Fish Oil [Fish 1 cap PO DAILY 02/04/18 02/04/18 Oil 1,000 mg Softgel] Turmeric Root Extract [Turmeric] 500 mg PO DAILY 02/04/18 02/04/18 Previous Rx's Medication Instructions Recorded Cephalexin [Keflex] 500 mg PO Q8HR 10 Days cap 02/27/18 HYDROcodone/APAP 5-325MG [[place] 1 tab PO Q6HR PRN #10 tab 02/27/18 5-325] Allergies Allergy/AdvReac Type Severity Reaction Status Date / Time amoxicillin [From Trimox] Allergy Swelling Verified 03/01/18 23:34 erythromycin base Allergy Swelling Verified 03/01/18 23:34 morphine Allergy Swelling Verified 03/01/18 23:34 Sulfa (Sulfonamide Allergy Rash/Hives Verified 03/01/18 23:34 Antibiotics) Review of Systems ROS Statement: Those systems with pertinent positive or pertinent negative responses have been documented in the HPI. ROS Other: All systems not noted in ROS Statement are negative. Past Medical History Past Medical History: Cancer Additional Past Medical History / Comment(s): PE within the last 30 days, current lung mass., lung CAncer History of Any Multi-Drug Resistant Organisms: None Reported Past Surgical History: Hysterectomy Additional Past Surgical History / Comment(s): bowel obstruction. Past Anesthesia/Blood Transfusion Reactions: No Reported Reaction Past Psychological History: No Psychological Hx Reported Smoking Status: Former smoker Past Alcohol Use History: Occasional Past Drug Use History: None Reported - Past Family History Mother Family Medical History: Coronary Artery Disease (CAD), Diabetes Mellitus Father Family Medical History: No Reported History General Exam Limitations: no limitations General appearance: alert, in no apparent distress Head exam: Present: atraumatic, normocephalic, normal inspection Eye exam: Present: normal appearance, PERRL, EOMI. Absent: scleral icterus, conjunctival injection, periorbital swelling ENT exam: Present: normal exam, mucous membranes moist Neck exam: Present: normal inspection. Absent: tenderness, meningismus, lymphadenopathy Respiratory exam: Present: normal lung sounds bilaterally, decreased breath sounds, prolonged expiratory. Absent: respiratory distress, wheezes, rales, rhonchi, stridor Cardiovascular Exam: Present: normal rhythm, tachycardia, normal heart sounds. Absent: systolic murmur, diastolic murmur, rubs, gallop, clicks GI/Abdominal exam: Present: soft, normal bowel sounds. Absent: distended, tenderness, guarding, rebound, rigid Extremities exam: Present: normal inspection, full ROM, normal capillary refill. Absent: tenderness, pedal edema, joint swelling, calf tenderness Back exam: Present: normal inspection Neurological exam: Present: alert, oriented X3, CN II-XII intact Psychiatric exam: Present: normal affect, normal mood Skin exam: Present: warm, dry, intact, normal color. Absent: rash Course Vital Signs 03/01/18 03/01/18 03/02/18 23:32 23:58 00:09 Temperature 97.7 F Pulse Rate 107 H 108 H 105 H Respiratory 24 Rate Blood Pressure 131/77 O2 Sat by Pulse 95 Oximetry - Reevaluation(s) Reevaluation #1: 03/02/18 00:10 Medical records reviewed EKG Findings - EKG Comments: EKG Findings:: EKG shows sinus tachycardia rate 111, TN 1:30, QRS 80, QTC 446 Medical Decision Making - Medical Decision Making 57 female positive left pleural effusion significant pleural effusion with shortness of breath, symptomatic pleural effusion secondary to CVA. We'll admit for evaluation of thoracentesis - Lab Data Result diagrams: 03/01/18 23:51 03/01/18 23:51 Lab Results 0703/01/18 03/01/18 Range/Units 23:51 23:51 23:51 WBC 10.6 (3.8-10.6) k/uL RBC 4.98 (3.80-5.40) m/uL Hgb 13.6 (11.4-16.0) gm/dL Hct 41.9 (34.0-46.0) % MCV 84.1 (80.0-100.0) fL MCH 27.2 (25.0-35.0) pg MCHC 32.4 (31.0-37.0) g/dL RDW 13.0 (11.5-15.5) % Plt Count 359 (150-450) k/uL Neutrophils % 75 % Lymphocytes % 13 % Monocytes % 6 % Eosinophils % 4 % Basophils % 0 % Neutrophils # 8.0 H (1.3-7.7) k/uL Lymphocytes # 1.4 (1.0-4.8) k/uL Monocytes # 0.6 (0-1.0) k/uL Eosinophils # 0.4 (0-0.7) k/uL Basophils # 0.0 (0-0.2) k/uL PT (9.0-12.0) sec INR (<1.2) APTT (22.0-30.0) sec Sodium 138 (137-145) mmol/L Potassium 4.4 (3.5-5.1) mmol/L Chloride 105 (98-107) mmol/L Carbon Dioxide 24 (22-30) mmol/L Anion Gap 9 mmol/L BUN 14 (7-17) mg/dL Creatinine 0.50 L (0.52-1.04) mg/dL Est GFR (CKD-EPI)AfAm >90 (>60 ml/min/1.73 sqM) Est GFR (CKD-EPI)NonAf >90 (>60 ml/min/1.73 sqM) Glucose 109 H (74-99) mg/dL Calcium 9.1 (8.4-10.2) mg/dL Magnesium 2.0 (1.6-2.3) mg/dL Total Bilirubin 0.3 (0.2-1.3) mg/dL AST 18 (14-36) U/L ALT 26 (9-52) U/L Alkaline Phosphatase 91 (38-126) U/L Total Creatine Kinase 32 (30-135) U/L NT-Pro-B Natriuret Pep pg/mL Total Protein 6.4 (6.3-8.2) g/dL Albumin 3.6 (3.5-5.0) g/dL 03/01/18 03/01/18 Range/Units 23:51 23:51 WBC (3.8-10.6) k/uL RBC (3.80-5.40) m/uL Hgb (11.4-16.0) gm/dL Hct (34.0-46.0) % MCV (80.0-100.0) fL MCH (25.0-35.0) pg MCHC (31.0-37.0) g/dL RDW (11.5-15.5) % Plt Count (150-450) k/uL Neutrophils % % Lymphocytes % % Monocytes % % Eosinophils % % Basophils % % Neutrophils # (1.3-7.7) k/uL Lymphocytes # (1.0-4.8) k/uL Monocytes # (0-1.0) k/uL Eosinophils # (0-0.7) k/uL Basophils # (0-0.2) k/uL PT 9.4 (9.0-12.0) sec INR 0.9 (<1.2) APTT 22.5 (22.0-30.0) sec Sodium (137-145) mmol/L Potassium (3.5-5.1) mmol/L Chloride (98-107) mmol/L Carbon Dioxide (22-30) mmol/L Anion Gap mmol/L BUN (7-17) mg/dL Creatinine (0.52-1.04) mg/dL Est GFR (CKD-EPI)AfAm (>60 ml/min/1.73 sqM) Est GFR (CKD-EPI)NonAf (>60 ml/min/1.73 sqM) Glucose (74-99) mg/dL Calcium (8.4-10.2) mg/dL Magnesium (1.6-2.3) mg/dL Total Bilirubin (0.2-1.3) mg/dL AST (14-36) U/L ALT (9-52) U/L Alkaline Phosphatase (38-126) U/L Total Creatine Kinase (30-135) U/L NT-Pro-B Natriuret Pep 131 pg/mL Total Protein (6.3-8.2) g/dL Albumin (3.5-5.0) g/dL - Radiology Data Radiology results: report reviewed (Chest x-ray left pleural effusion), image reviewed Disposition Clinical Impression: Lung mass, History of lung cancer, Pleural effusion, left Disposition: ADMITTED IP TO THIS HOSP Condition: Fair Is patient prescribed a controlled substance at d/c from ED?: No Referrals: Darryl Ochoa MD [Primary Care Provider] - 1-2 days
[2018-03-02 00:11] LABS: Basophils % (A) 0 %; Eosinophils # (A) 0.4 k/uL (0-0.7); Eosinophils % (A) 4 %; HCT 41.9 % (34.0-46.0); HGB 13.6 gm/dL (11.4-16.0); Lymphocytes # (A) 1.4 k/uL (1.0-4.8); Lymphocytes % (A) 13 %; MCH 27.2 pg (25.0-35.0); MCHC 32.4 g/dL (31.0-37.0); MCV 84.1 fL (80.0-100.0); Mean Platelet Volume 6.7; Monocytes # (A) 0.6 k/uL (0-1.0); Monocytes % (A) 6 %; Neutrophils % (A) 75 %; Platelet Count 359 k/uL (150-450); RBC 4.98 m/uL (3.80-5.40); WBC 10.6 k/uL (3.8-10.6)
[2018-03-02 00:17] LABS: INR 0.9 (<1.2); Partial Thromboplastin Time 22.5 sec (22.0-30.0); Prothrombin Time 9.4 sec (9.0-12.0)
[2018-03-02 00:20] LABS: ALT 26 U/L (9-52); AST 18 U/L (14-36); Albumin 3.6 g/dL (3.5-5.0); Alkaline Phosphatase 91 U/L (38-126); Anion Gap 9 mmol/L; Blood Urea Nitrogen 14 mg/dL (7-17); Calcium 9.1 mg/dL (8.4-10.2); Carbon Dioxide 24 mmol/L (22-30); Chloride 105 mmol/L (98-107); Glucose 109 mg/dL (74-99); Potassium 4.4 mmol/L (3.5-5.1); Sodium 138 mmol/L (137-145); Total Bilirubin 0.3 mg/dL (0.2-1.3); Total Protein 6.4 g/dL (6.3-8.2)
--- NOTE | 2018-03-02 00:24 | XR ---
EXAMINATION TYPE: XR chest 2V DATE OF EXAM: 03/02/2018 COMPARISON: 02/04/2018 HISTORY: Lung cancer. Difficulty breathing TECHNIQUE: Frontal and lateral views of the chest are obtained. FINDINGS: There is large left pleural effusion and significant opacification of left hemithorax. The re is a 5 cm area of consolidation in the left upper lobe at the apex. The right lung is clear. Heart and mediastinum are shifted slightly to the right side. There is no heart failure. IMPRESSION: Left hydrothorax with tension and with shift of the heart to the right side. Left side o pacification is significantly increased compared to last exam.
[2018-03-02 00:35] LABS: Creatine Kinase 32 U/L (30-135)
[2018-03-02] MEDS ORDERED: IPRATROPIUM-ALBUTEROL 3 ML NEB INHALATION PRN (00:44)
[2018-03-02] MEDS ORDERED: SODIUM CHLORIDE 0.9% 1,000 ML IV SCH (00:45)
[2018-03-02 00:47] LABS: Creatine Kinase MB <0.2 ng/mL (0.0-2.4); Troponin I <0.012 ng/mL (0.000-0.034)
[2018-03-02] MEDS ORDERED: ONDANSETRON 4 MG/2 ML VIAL IVP STA ×2 (00:49→00:58)
[2018-03-02 02:42] VITALS: BMI 22.7
[2018-03-02] MEDS: HYDROmorphone 0.5 MG/0.5 ML SYRINGE IVP SCH ×3 (04:14→07:18)
[2018-03-02 06:08] VITALS: RESP 16
[2018-03-02] MEDS ORDERED: ONDANSETRON 4 MG/2 ML VIAL IVP PRN (06:36)
[2018-03-02] MEDS ORDERED: HYDROcodone/APAP 5-325MG 1 EACH TAB PO PRN (06:37)
[2018-03-02] MEDS ORDERED: NAPROXEN 250 MG TAB PO PRN (06:43)
[2018-03-02] MEDS ORDERED: DRONABINOL 2.5 MG CAP PO PRN (07:00)
[2018-03-02] MEDS ORDERED: CEPHALEXIN 500 MG CAP PO SCH (08:00)
[2018-03-02] MEDS ORDERED: ENOXAPARIN 40 MG/0.4 ML SYRINGE SQ SCH (09:00)
[2018-03-02] MEDS ORDERED: DOCUSATE 100 MG CAP PO SCH ×2 (09:00→21:00)
[2018-03-02] MEDS: HYDROmorphone 1 MG/ML 1 ML SYRINGE IVP PRN ×2 (09:11→13:24)
[2018-03-02] MEDS ORDERED: LIDOCAINE 1% INJ 10MG/ML (20 ML MDV) SQ ONE (10:36)
--- NOTE | 2018-03-02 11:19 | P.CNPUL ---
History of Present Illness Consult date: 03/02/18 Chief complaint: Left-sided pleural effusion History of present illness: This is a 57-year-old female whom I saw on consultation at [facility]. Patient presented with acute deep vein thrombosis, and she was found to have [address] of the chest mostly in the left lung. Patient underwent CT-guided needle biopsy of the left lower lobe mass which was peripheral, however the diagnosis came back negative, poor specimen apparently according to the pathologist. In the meantime the patient was kept on Xarelto and she is here today for further evaluation. Patient used to smoke but she quit many years ago. She did have a PET scan in regards to the left upper lobe mass. Unfortunately, there was significant uptake in the left upper lobe lesion , the medial lesion in the left lower lobe lesion. The FNA of the left lower lobe did not reveal any evidence of malignancy. We performed navigational bronchoscopy to attempt to get a definitive diagnosis. The biopsies came back positive in the left upper lobe for adenocarcinoma. We referred to oncology for further treatment plans. On 01/26/2018 I'm seeing this patient for a follow-up in the office. The patient came to discuss her condition in general and she was also having some other problems including sinus pain and pressure and drainage in addition to some hoarseness that has developed over the past 2 months at least. There was obvious change in her voice quality. I had referred this patient to oncology and the patient was further seen by [facility] thoracic surgery division. The patient was offered surgery. She was not sure whether this was the right thing for her. She did not proceed with the surgery and here she was for further advice. I ordered a follow-up CAT scan of the chest assess disease progression. Sequently, She was having also some shortness of breath and some nausea. In the emergency department, the CAT scan of the chest was repeated utilizing a CT angios protocol. The CT angios did not show any evidence of pulmonary embolism. Nevertheless, there was evidence of progression of her original lung cancer. There was a neoplasm in the left hilar area that has increased in size compared to the earlier CAT scan from June 2017. The left upper lobe mass has also grown in size and was measuring 4.7 x 1.9 cm in size compared to 3.1 x 2.0 cm in size. There was another mass in the superior segment of the left lower lobe currently measuring 3.7 cm in size compared to 2.3 cm in size previously. There is also new were smaller pulmonary nodules scattered throughout the light right lung and these nodules are measuring 5 mm in size and there are essentially smaller nodules. There is no evidence of any pleural effusion. There are new bilateral adrenal masses measuring up to 3.9 cm in size on the right and 3 cm on the left. These findings were discussed with the patient at length. She was made aware that there is obvious progression of her non-small cell lung cancer and at least she is stage IV disease. She was made aware that her disease is metastatic at this stage. I have discussed her case with her oncologist. The patient made it very clear to me that she does not want any further treatment and she was seeking palliative care. She understood that this is a terminal illness and her survival is obviously less than a year. She wanted to make sure that she does not suffer through this illness and disease and underwent to help her with complications of lung cancer including shortness of breath and her cough and pain in the future. Review of Systems Constitutional Constitutional: no excess weight gain, no loss of appetite, no fever, normal activity, no fatigue, excess weight loss Eyes Eyes: no eye pain, no blurry vision, no eye redness, no eye itchiness, no eye swelling, no eye discharge ENMT ENMT: no ear pain, no ear discharge, no hearing loss, no sinus pressure, no swelling, no congestion, no sore throat, no mouth lesions, no nasal discharge, hoarseness Cardiovascular Cardiovascular: no chest pain, no rapid heart rate, no cyanosis, no pallor Respiratory Respiratory: Worsening shortness of breath in addition to hoarseness Gastrointestinal GI: no difficulty swallowing, no abdominal pain, no nausea, no vomiting, no diarrhea, no constipation, no blood in stools Genitourinary General: no blood in urine, no pain during urination, no increased frequency of urination, no voiding urgency Musculoskeletal Musculoskeletal: no soft tissue swelling, no joint swelling, no limited motion, no myalgia Skin Skin: no pain, no itchiness, no skin redness, no rash, no hives, no skin lesions , no swelling, no bruising Neurological symptoms Neuro: no numbness, no weakness, no tingling, no burning, no shooting pain, no headache, no diziness, no loss of consciousness Endocrine Endocrine: no increased thirst, no temperature intolerance Psychiatric Psych: no depression, no sleep disturbances, feeling safe in relationship, no alcohol abuse Hematologic/Lymphatic Hematologic/Lymphatic no swollen glands Allergic/Immunologic Allergy/Immunologic: no sinus pressure, no itching Past Medical History Past Medical History: Cancer Additional Past Medical History / Comment(s): History of non-small cell lung cancer, previous history of pulmonary embolism, please refer to the details mentioned above. . History of Any Multi-Drug Resistant Organisms: None Reported Past Surgical History: Hysterectomy Additional Past Surgical History / Comment(s): Bowel obstruction. Past Anesthesia/Blood Transfusion Reactions: No Reported Reaction Past Psychological History: No Psychological Hx Reported Smoking Status: Former smoker Past Alcohol Use History: Occasional Additional Past Alcohol Use History / Comment(s): Quit smoking 14 yrs ago. Patient states she drinks red wine a couple times a week but recently she hasn' t been drinking much. Past Drug Use History: None Reported - Past Family History Mother Family Medical History: Coronary Artery Disease (CAD), CVA/TIA, Diabetes Mellitus Additional Family Medical History / Comment(s): Patient states her mother at age 72 from a stroke. Father Family Medical History: No Reported History Additional Family Medical History / Comment(s): Patient states her father when she was young in a car accident. Medications and Allergies Home Medications Medication Instructions Recorded Confirmed Type Cephalexin [Keflex] 500 mg PO Q8HR 10 Days cap 02/27/18 03/02/18 Rx HYDROcodone/APAP 5-325MG [[place] 1 tab PO Q6HR PRN #10 tab 02/27/18 03/02/18 Rx 5-325] Dronabinol [Marinol] 2.5 mg PO BID PRN 03/02/18 03/02/18 History Naproxen Sodium [Aleve] 220 mg PO BID PRN 03/02/18 03/02/18 History Allergies Allergy/AdvReac Type Severity Reaction Status Date / Time amoxicillin [From Trimox] Allergy Anaphylaxis Verified 03/02/18 08:36 erythromycin base Allergy Anaphylaxis Verified 03/02/18 08:36 morphine Allergy Swelling Verified 03/02/18 08:36 Sulfa (Sulfonamide Allergy Rash/Hives Verified 03/02/18 08:36 Antibiotics) Physical Exam Vitals: Vital Signs Temp Pulse Pulse Resp BP BP Pulse Ox 03/02/18 05:00 97.7 F 82 16 117/85 96 03/02/18 01:34 78 15 120/70 95 03/02/18 00:50 96.7 F L 88 16 122/79 97 03/02/18 00:09 105 H 03/01/18 23:58 108 H 03/01/18 23:32 97.7 F 107 H 24 131/77 95 Intake and Output 03/01/18 03/02/18 03/02/18 22:59 06:59 14:59 Intake Total 180 Balance 180 Intake: Intake, IV Titration 80 Amount Sodium Chloride 0.9% 1, 80 000 ml @ 20 mls/hr IV . Q24H [facility] Rx#:[id number] Oral 100 Other: Voiding Method Toilet Toilet Weight 62 kg Constitutional General Appearance: well nourished, well developed, appears stated age Level of Distress: no acute distress Ambulation: ambulating normally ENMT Nasal Mucosa: normal, no discharge, pink and moist Septum: not markedly deformed Turbinates: normal turbinate Lips, Teeth, and Gums: normal lips, normal dentition, normal gums Oral Mucosa: no ulcer, no mass, no pallor, moist, no cyanosis, no inflammation, no swelling, no rash, no leukoplakia Tongue: no erythema, no lesions, no enlargement, no swelling, no deviation Posterior pharynx: no enlargement, no erythema, no exudate, no white patches, no ulcers, no mass Neck Neck: supple, trachea midline, no masses, Full ROM Thyroid: no enlargement, non-tender, no nodules Jugular Veins: normal jugular venous pressure Lungs Respiratory effort: Labored Inspection: normal chest wall expansion, normal curve, no deformity, no tenderness, no swelling Auscultation: breath sounds are diminished in the left lung base along with dullness to percussion Cardiovascular Precordial Exam: non displaced focal PMI, no heaves, no precordial thrills Heart Rate And Rhythm: normal heart rate and rhythm Heart Sounds: normal s1, no physiologically split S2, no pericardial friction rub, no gallop, no click Systolic Murmur: no systolic murmurs Observation/Palpation of peripheral vascular system: no cyanosis, no edema, normal dorsalis pedis, normal posterior tibialis Abdomen Inspection and Palpation: soft, non-distended, no tenderness, no masses Liver: non-tender, no hepatomegaly Spleen: non-tender, no splenomegaly Bowel Sounds: normal, no abdominal bruits Lymphatic: no cervical LAD, no supraclavicular LAD Musculoskeletal: Motor Strength and Tone: normal motor strength, normal bulk, normal tone Gait and Station: normal gait Joints, Bones, and Muscles: normal movement of all extremities, no bony abnormalities, no contractures, no malalignment, no tenderness Extremities Inspection/Palpation of digits and nails: no clubbing, no cyanosis, no petechiae , no infection, no nodular lesions, no ischemia, no edema Skin Inspection and palpation: no rash, no lesions, no jaundice, normal turgor Neurologic Mental Status/Orientation: oriented to person, oriented to place, oriented to problem/situation, oriented to time Mood/Affect: normal mood, normal affect Results - Laboratory Findings CBC and BMP: 03/01/18 23:51 03/01/18 23:51 PT/INR, D-dimer PT 9.4 sec (9.0-12.0) 03/01/18 23:51 INR 0.9 (<1.2) 03/01/18 23:51 Abnormal lab findings: Abnormal Labs 03/01/18 03/01/18 23:51 23:51 Neutrophils # 8.0 H Creatinine 0.50 L Glucose 109 H - Diagnostic Findings Chest x-ray: image reviewed Assessment and Plan Plan: Assessment 1 non-small cell lung cancer, TNM stage IV. The patient is diagnosis established approximately 6 months ago and subsequent CAT scan of the chest showed enlargement in the left upper lobe mass and the left lower lobe masses and there was evidence of interval progression of the left hilar mass encasing the pulmonary artery. In addition, there was development of bilateral adrenal lesions and right-sided pulmonary nodules. Subsequently, the patient gets hospitalized because of a large left-sided pleural effusion. The patient did not want any palliative treatment or chemotherapy or immunotherapy. This was offered to return outpatient basis and she declined. Back then, the patient was insistent comfort care measures/hospice. 2 left-sided pleural effusion, large, and new developments compared to the previous chest x-ray from January 2018 3 shortness of breath secondary to above 4 hoarseness secondary to above 5 previous history of pulmonary embolism 6 gallstones Plan The patient will need a palliative thoracentesis. This will give her symptomatic relief and improve her shortness of breath. She is not considering a Pleurx catheter this point. A bedside thoracentesis will be done. The patient will be also enrolled in hospice program. Discharge probably today following the procedure.
--- NOTE | 2018-03-02 12:00 | PCN ---
PROCEDURE NOTE THORACENTESIS NOTE: PREOPERATIVE DIAGNOSIS: Left-sided pleural effusion. POSTOPERATIVE DIAGNOSIS: Left-sided pleural effusion. A time-out was completed verifying correct patient, procedure, site, positioning , and implant (s) or special equipment if applicable. Ultrasound guidance was not used and appropriate fluid pocket was identified and marked. Patient was positioned, prepped and draped in usual sterile fashion. Lidocaine was used to anesthetize the area. A Thoracentesis catheter was introduced into the pleural space and fluid was removed. Blood loss was none. A chest x-ray was ordered to evaluate for pneumothorax. Total Fluid Removed 1.8 L Color of Fluid Turbid, dark-yellow Patient tolerated the procedure well and there were no complications. MMODL / IJN: [id number] /
--- NOTE | 2018-03-02 14:50 | P.HPIM ---
History of Present Illness Patient is a very pleasant 57-year-old female came in with compensative shortness of breath found to have severe left-sided pleural effusion area did patient was recently diagnosed with the adenocarcinoma of the left lung patient opted out of treatment. Patient patient although had thoracocentesis for comfort purposes, about 1.5 L of pleural fluid was removed. Patient has a mass inducible segment of the left upper lobe mass in the left hilar area. Patient has some pain in the right upper quadrant secondary to metastatic disease. Patient was requesting hospice services hospice was consulted. Patient is aware that she can have this pleural effusion again recurrent pleural effusions are pretty, and with malignancy. If we're able to set up hospice at home for her today patient will be discharged today home with home hospice. Review of Systems REVIEW OF SYSTEMS: CONSTITUTIONAL: No fever, no malaise, no fatigue. HEENT: No recent visual problems or hearing problems. Denied any sore throat. CARDIOVASCULAR: No chest pain, orthopnea, PND, no palpitations, no syncope. PULMONARY: no hemoptysis. GASTROINTESTINAL: No diarrhea, no nausea, no vomiting, Normoactive bowel sounds. NEUROLOGICAL: No headaches, no weakness, no numbness. HEMATOLOGICAL: Denies any bleeding or petechiae. GENITOURINARY: Denies any burning micturition, frequency, or urgency. MUSCULOSKELETAL/RHEUMATOLOGICAL: Denies any joint pain, swelling, or any muscle pain. ENDOCRINE: Denies any polyuria or polydipsia. The rest of the 14-point review of systems is negative. Past Medical History Past Medical History: Cancer Additional Past Medical History / Comment(s): History of non-small cell lung cancer, previous history of pulmonary embolism, please refer to the details mentioned above. . History of Any Multi-Drug Resistant Organisms: None Reported Past Surgical History: Hysterectomy Additional Past Surgical History / Comment(s): Bowel obstruction. Past Anesthesia/Blood Transfusion Reactions: No Reported Reaction Past Psychological History: No Psychological Hx Reported Smoking Status: Former smoker Past Alcohol Use History: Occasional Additional Past Alcohol Use History / Comment(s): Quit smoking 14 yrs ago. Patient states she drinks red wine a couple times a week but recently she hasn' t been drinking much. Past Drug Use History: None Reported - Past Family History Mother Family Medical History: Coronary Artery Disease (CAD), CVA/TIA, Diabetes Mellitus Additional Family Medical History / Comment(s): Patient states her mother at age 72 from a stroke. Father Family Medical History: No Reported History Additional Family Medical History / Comment(s): Patient states her father when she was young in a car accident. Medications and Allergies Home Medications Medication Instructions Recorded Confirmed Type Cephalexin [Keflex] 500 mg PO Q8HR 10 Days cap 02/27/18 03/02/18 Rx HYDROcodone/APAP 5-325MG [[place] 1 tab PO Q6HR PRN #10 tab 02/27/18 03/02/18 Rx 5-325] Dronabinol [Marinol] 2.5 mg PO BID PRN 03/02/18 03/02/18 History Naproxen Sodium [Aleve] 220 mg PO BID PRN 03/02/18 03/02/18 History Allergies Allergy/AdvReac Type Severity Reaction Status Date / Time amoxicillin [From Trimox] Allergy Anaphylaxis Verified 03/02/18 08:36 erythromycin base Allergy Anaphylaxis Verified 03/02/18 08:36 morphine Allergy Swelling Verified 03/02/18 08:36 Sulfa (Sulfonamide Allergy Rash/Hives Verified 03/02/18 08:36 Antibiotics) Physical Exam Vitals: Vital Signs Temp Pulse Pulse Resp BP BP Pulse Ox 03/02/18 11:34 97.7 F 76 16 127/78 96 03/02/18 05:00 97.7 F 82 16 117/85 96 03/02/18 01:34 78 15 120/70 95 03/02/18 00:50 96.7 F L 88 16 122/79 97 03/02/18 00:09 105 H 03/01/18 23:58 108 H 03/01/18 23:32 97.7 F 107 H 24 131/77 95 Intake and Output 03/01/18 03/02/18 03/02/18 22:59 06:59 14:59 Intake Total 180 Balance 180 Intake: Intake, IV Titration 80 Amount Sodium Chloride 0.9% 1, 80 000 ml @ 20 mls/hr IV . Q24H [facility] Rx#:[id number] Oral 100 Other: Voiding Method Toilet Toilet Weight 62 kg PHYSICAL EXAMINATION: GENERAL: The patient is alert and oriented x3, not in any acute distress. Well developed, well nourished. HEENT: Pupils are round and equally reacting to light. EOMI. No scleral icterus. No conjunctival pallor. Normocephalic, atraumatic. No pharyngeal erythema. No thyromegaly. CARDIOVASCULAR: S1 and S2 present. No murmurs, rubs, or gallops. PULMONARY: Air entry good the right lung salmon left-sided decreased air entry posteriorly stony dullness to percussion. ABDOMEN: Soft, nontender, nondistended, normoactive bowel sounds. No palpable organomegaly. MUSCULOSKELETAL: No joint swelling or deformity. EXTREMITIES: No cyanosis, clubbing, or pedal edema. NEUROLOGICAL: Gross neurological examination did not reveal any focal deficits. SKIN: No rashes. Results CBC & Chem 7: 03/01/18 23:51 03/01/18 23:51 Labs: Abnormal Lab Results - Last 24 Hours (Table) 03/01/18 03/01/18 Range/Units 23:51 23:51 Neutrophils # 8.0 H (1.3-7.7) k/uL Creatinine 0.50 L (0.52-1.04) mg/dL Glucose 109 H (74-99) mg/dL Thrombosis Risk Factor Assmnt - Choose All That Apply Any of the Below Risk Factors Present?: Yes Each Factor Represents 1 point: Age 41-60 years Other Risk Factors: No Other congenital or acquired thrombophilia - If yes, enter type in comment: No Thrombosis Risk Factor Assessment Total Risk Factor Score: 1 Thrombosis Risk Factor Assessment Level: Low Risk Assessment and Plan Plan: -Short of breath secondary to malignant pleural effusion on the left side therapeutic paracentesis. -Non-small cell lung cancer, adenocarcinoma of the lung stage IV, hospice will be consulted neck -Previous history of pulmonary embolism
--- NOTE | 2018-03-02 15:29 | P.DS ---
Providers Date of admission: 03/02/18 00:44 Attending physician: Michael Sanchez Consults: 03/02/18 00:46 Consult Physician Routine Consulting Provider: Kirit Sun Consult Reason/Comments: known Do you want consulting provider notified?: Yes Primary care physician: Gabriela Andrews Hospital Course: Patient is being discharged home with home hospice. Please refer to my dictation of H&P for further details Patient Condition at Discharge: Fair Plan - Discharge Summary Discharge Rx Participant: No New Discharge Prescriptions: New HYDROmorphone [Dilaudid] 4 mg PO Q4H PRN 3 Days #18 tab PRN Reason: Pain Hyoscyamine Elixir [Levsin 0.125MG/ML Drops] 0.125 mg PO Q6HR PRN #5 ml PRN Reason: Secretions LORazepam [Ativan] 1 mg PO QID PRN #12 tab PRN Reason: Anxiety Ondansetron Odt [Zofran Odt] 4 mg PO Q8HR PRN #20 tab PRN Reason: Nausea And Vomiting Polyethylene Glycol 3350 [Miralax] 17 gm PO DAILY PRN #15 packet PRN Reason: Constipation Discontinued Cephalexin [Keflex] 500 mg PO Q8HR 10 Days cap Naproxen Sodium [Aleve] 220 mg PO BID PRN PRN Reason: Pain No Action HYDROcodone/APAP 5-325MG [[place] 5-325] 1 tab PO Q6HR PRN #10 tab PRN Reason: Pain Dronabinol [Marinol] 2.5 mg PO BID PRN PRN Reason: Nausea Discharge Medication List HYDROcodone/APAP 5-325MG [[place] 5-325] 1 tab PO Q6HR PRN #10 tab 02/27/18 [Rx] Dronabinol [Marinol] 2.5 mg PO BID PRN 03/02/18 [History] HYDROmorphone [Dilaudid] 4 mg PO Q4H PRN 3 Days #18 tab 03/02/18 [Rx] Hyoscyamine Elixir [Levsin 0.125MG/ML Drops] 0.125 mg PO Q6HR PRN #5 ml [Rx] LORazepam [Ativan] 1 mg PO QID PRN #12 tab 03/02/18 [Rx] Ondansetron Odt [Zofran Odt] 4 mg PO Q8HR PRN #20 tab 03/02/18 [Rx] Polyethylene Glycol 3350 [Miralax] 17 gm PO DAILY PRN #15 packet 03/02/18 [Rx] Follow up Appointment(s)/Referral(s): Darryl Ochoa MD [Primary Care Provider] - 1-2 days [facility], [NON-STAFF] - As Needed Discharge Disposition: HOME WITH HOSPICE
[2018-03-02 15:31] VITALS: BP 95/64; PULSE 102; TEMP 98
== END 2018-03-02 16:40 | disposition hospice, home (50) ==
LOC: EC 23:06 → 5MS5E 03-02 00:44
PROVIDERS: ADMIT Hospitalist; ATTEND Hospitalist
DX: C34.32 Malignant neoplasm of lower lobe, left bronchus or lung (principal); J91.0 Malignant pleural effusion; C34.12 Malignant neoplasm of upper lobe, left bronchus or lung; C34.02 Malignant neoplasm of left main bronchus; C78.01 Secondary malignant neoplasm of right lung; K80.20 Calculus of gallbladder without cholecystitis without obstruction; Z86.711 Personal history of pulmonary embolism; Z87.891 Personal history of nicotine dependence; Z83.3 Family history of diabetes mellitus; Z82.49 Family history of ischemic heart disease and other diseases of the circulatory system; Z82.3 Family history of stroke; Z88.1 Allergy status to other antibiotic agents; Z88.5 Allergy status to narcotic agent; Z88.2 Allergy status to sulfonamides
CPT/HCPCS: 32554; 96374 ×2; 96375 ×2; 96376 ×3; 99285 ×2; 36415; 94640; 83880; 80053; 82550; 82553; 83735; 84484; 85025; 85610; 85730; 71046; G0378; Q0167; J2405; J1170 ×2